=== PATIENT | female | born 1965 | race Caucasian/White ===

== ENCOUNTER → 2017-10-29 | Outpatient (CLI) | payer MEDICAID, OTHER ==
[~2017-10-29] MED LIST: AGM875T PO; ALBU17AE3 IH; AMLO5TAB2 PO; CIPR500T4 PO; CIPR500T78 PO; CLON0.1T14 PO; CYCL10TA9 PO; IBP800T PO; IBUP800T26 PO; LISI1TAB10 PO; LVT.15T PO; MECL-124 PO; MELO-195 PO; METR500T21 PO; MTR500T PO; OLOP2.5D OU; PHEN200T27 PO; PRD1T PO; RANI300T4 PO; RNT150T PO
--- NOTE | 2017-10-29 19:03 | Diagnostic Imaging Report ---
INDICATION: Routine screening. No prior mammograms are available for comparison. This is a baseline study. 2-D and 3-D bilateral screening mammography was performed with CAD. The current study was also evaluated with a Computer Aided Detection (CAD) system. FINDINGS: Scattered benign-appearing calcifications are noted bilaterally. There is an intramammary lymph node in upper outer left breast. No spiculated mass or malignant-appearing microcalcifications are seen. The axillae are unremarkable. IMPRESSION: No mammographic features suspicious for malignancy are identified. ACR BI-RADS Category 2: Benign findings. Result letter will be mailed to the patient. Note: At least 10% of breast cancer is not imaged by mammography. Dictated by: Dictated on workstation # [id number]
== END ==
LOC: RAD 09:13
PROVIDERS: ATTEND Nurse Practitioner Primary Care
DX: Z12.31 Encounter for screening mammogram for malignant neoplasm of breast (principal)
CPT/HCPCS: 77067

== ENCOUNTER 2018-07-16 09:34 | Outpatient (RCR) | payer OTHER ==
[2018-05-15 14:24] LABS: BASOPHILS # (AUTO) 0.1 10^3/uL (0.0-0.1); BASOPHILS % (AUTO) 1 % (0-10); EOSINOPHILS # (AUTO) 0.4 10^3/uL (0.0-0.3); EOSINOPHILS % (AUTO) 3 % (0-10); HEMATOCRIT 44 % (35-52); HEMOGLOBIN 14.7 G/DL (11.5-16.0); LYMPHOCYTES # (AUTO) 3.1 X 10^3 (1.0-4.0); LYMPHOCYTES % (AUTO) 24 % (12-44); MEAN CORPUSCULAR HEMOGLOBIN 29 PG (25-34); MEAN CORPUSCULAR HGB CONC 34 G/DL (32-36); MEAN CORPUSCULAR VOLUME 86 FL (80-99); MEAN PLATELET VOLUME 10.9 FL (7.4-10.4); MONOCYTES % (AUTO) 8 % (0-12); NEUTROPHILS # (AUTO) 8.6 X 10^3 (1.8-7.8); NEUTROPHILS % (AUTO) 65 % (42-75); PLATELET COUNT 277 10^3/uL (130-400); RED CELL DISTRIBUTION WIDTH 14.4 % (10.0-14.5); WHITE BLOOD COUNT 13.1 10^3/uL (4.3-11.0)
[2018-05-15 14:45] LABS: ALANINE AMINOTRANSFERASE 16 U/L (0-55); ALBUMIN 3.7 GM/DL (3.2-4.5); ALKALINE PHOSPHATASE 91 U/L (40-136); BILIRUBIN,TOTAL 0.3 MG/DL (0.1-1.0); BUN/CREATININE RATIO 13; CARBON DIOXIDE 24 MMOL/L (21-32); CHLORIDE 106 MMOL/L (98-107); CREATININE SERUM 0.72 MG/DL (0.60-1.30); GFR ESTIMATED > 60; GLUCOSE 118 MG/DL (70-105); POTASSIUM 3.6 MMOL/L (3.6-5.0); SODIUM 139 MMOL/L (135-145); TOTAL PROTEIN 6.4 GM/DL (6.4-8.2)
[~2018-07-16 09:34] MED LIST changes: +METR-145 PO; -METR500T21 PO
[2018-07-16 10:21] LABS: BASOPHILS # (AUTO) 0.1 10^3/uL (0.0-0.1); BASOPHILS % (AUTO) 1 % (0-10); EOSINOPHILS # (AUTO) 0.5 10^3/uL (0.0-0.3); EOSINOPHILS % (AUTO) 5 % (0-10); HEMATOCRIT 44 % (35-52); HEMOGLOBIN 14.4 G/DL (11.5-16.0); LYMPHOCYTES # (AUTO) 2.3 X 10^3 (1.0-4.0); LYMPHOCYTES % (AUTO) 22 % (12-44); MEAN CORPUSCULAR HEMOGLOBIN 29 PG (25-34); MEAN CORPUSCULAR HGB CONC 33 G/DL (32-36); MEAN CORPUSCULAR VOLUME 87 FL (80-99); MEAN PLATELET VOLUME 11.2 FL (7.4-10.4); MONOCYTES # (AUTO) 0.7 X 10^3 (0.0-1.0); MONOCYTES % (AUTO) 7 % (0-12); NEUTROPHILS # (AUTO) 6.5 X 10^3 (1.8-7.8); NEUTROPHILS % (AUTO) 65 % (42-75); PLATELET COUNT 275 10^3/uL (130-400); RED CELL DISTRIBUTION WIDTH 14.4 % (10.0-14.5); WHITE BLOOD COUNT 10.1 10^3/uL (4.3-11.0)
== END 2018-08-13 | disposition home or self-care (01) ==
LOC: ONC 09:34
PROVIDERS: ATTEND Internal Medicine Hematology & Oncology
DX: D72.829 Elevated white blood cell count, unspecified (principal); Z85.850 Personal history of malignant neoplasm of thyroid; I25.10 Atherosclerotic heart disease of native coronary artery without angina pectoris; I10 Essential (primary) hypertension; M48.061 Spinal stenosis, lumbar region without neurogenic claudication; M51.36 Other intervertebral disc degeneration, lumbar region; M47.816 Spondylosis without myelopathy or radiculopathy, lumbar region; E66.01 Morbid (severe) obesity due to excess calories; Z68.42 Body mass index [BMI] 45.0-49.9, adult; Z79.899 Other long term (current) drug therapy
CPT/HCPCS: 36415; 80053; 81206; 81270; 82784; 83615; 83883; 84155; 84165; 84443; 85025; 86800; 99213; 99214

== ENCOUNTER → 2018-11-26 | Outpatient (CLI) | payer SELFPAY ==
--- NOTE | 2018-11-26 13:26 | Diagnostic Imaging Report ---
PROCEDURE: MRI lumbar spine. TECHNIQUE: Multiplanar, multisequence MRI of the lumbar spine was performed without contrast. INDICATION: Lower back pain. COMPARISON: None. FINDINGS: For the purposes of this exam, last well-formed disc space is denoted the L5-S1 level. There is mild grade 1 retrolisthesis at L5-S1. Otherwise, static alignment is maintained. There is no evidence of jumped facets. The vertebral body heights are preserved. There is no evidence of acute fracture. Marrow signal is normal throughout. There is multilevel intervertebral disc height loss as well, also greatest at the L5-S1 level. Visualized portions of the distal cord are unremarkable. Conus terminates at approximately the L1 level. No abnormal intrathecal filling defects are seen. Pre- and para-vertebral soft tissue structures are unremarkable. Axial images demonstrate the following: T12-L1 and L1-L2: There is no large disc bulge or focal protrusion. There is no significant spinal canal or neural foraminal stenosis. L2-L3: There is no large disc bulge or focal protrusion. There is mild bilateral ligamentum flavum laxity and facet arthropathy. As a result, there is mild narrowing of the spinal canal. Neural foramina are unremarkable. L3-L4: There is mild broad-based posterior disc bulge as well as bilateral ligamentum flavum laxity and facet arthropathy. As a result, there is mild narrowing of the spinal canal and bilateral neural foramina. L4-L5: There is broad-based posterior disc bulge with bilateral ligamentum flavum laxity and facet arthropathy. As a result, there is mild narrowing of the spinal canal and minimal narrowing of the bilateral neural foramina. L5-S1: There is broad-based posterior disc osteophyte complex formation with bilateral facet arthropathy. As a result, there is mild narrowing of the spinal canal and moderate stenosis of the bilateral neural foramina. IMPRESSION: 1. Multilevel degenerative changes of the lumbar spine, greatest at the L5-S1 level as described above. 2. No acute fracture or dislocation. Dictated by: Dictated on workstation # [id number]
== END ==
LOC: RAD 10:02
PROVIDERS: ATTEND Family Medicine
DX: M48.07 Spinal stenosis, lumbosacral region (principal); M25.78 Osteophyte, vertebrae; M46.87 Other specified inflammatory spondylopathies, lumbosacral region; M43.17 Spondylolisthesis, lumbosacral region; M51.17 Intervertebral disc disorders with radiculopathy, lumbosacral region; M47.817 Spondylosis without myelopathy or radiculopathy, lumbosacral region
CPT/HCPCS: 72148

== ENCOUNTER → 2019-01-15 | Outpatient (CLI) | payer SELFPAY ==
[2019-01-15 09:22] LABS: BASOPHILS # (AUTO) 0.1 10^3/uL (0.0-0.1); BASOPHILS % (AUTO) 1 % (0-10); EOSINOPHILS # (AUTO) 0.5 10^3/uL (0.0-0.3); EOSINOPHILS % (AUTO) 5 % (0-10); HEMATOCRIT 44 % (35-52); HEMOGLOBIN 14.8 G/DL (11.5-16.0); LYMPHOCYTES # (AUTO) 2.8 X 10^3 (1.0-4.0); LYMPHOCYTES % (AUTO) 26 % (12-44); MEAN CORPUSCULAR HEMOGLOBIN 29 PG (25-34); MEAN CORPUSCULAR HGB CONC 33 G/DL (32-36); MEAN CORPUSCULAR VOLUME 88 FL (80-99); MEAN PLATELET VOLUME 11.2 FL (7.4-10.4); MONOCYTES # (AUTO) 0.9 X 10^3 (0.0-1.0); MONOCYTES % (AUTO) 8 % (0-12); NEUTROPHILS # (AUTO) 6.3 X 10^3 (1.8-7.8); NEUTROPHILS % (AUTO) 59 % (42-75); PLATELET COUNT 252 10^3/uL (130-400); RED CELL DISTRIBUTION WIDTH 14.4 % (10.0-14.5); WHITE BLOOD COUNT 10.7 10^3/uL (4.3-11.0)
[2019-01-15 09:41] LABS: ALANINE AMINOTRANSFERASE 19 U/L (0-55); ALBUMIN 3.6 GM/DL (3.2-4.5); ALKALINE PHOSPHATASE 92 U/L (40-136); BILIRUBIN,TOTAL 0.3 MG/DL (0.1-1.0); BUN/CREATININE RATIO 14; CALCIUM 8.8 MG/DL (8.5-10.1); CARBON DIOXIDE 21 MMOL/L (21-32); CHLORIDE 106 MMOL/L (98-107); CREATININE SERUM 0.76 MG/DL (0.60-1.30); GFR ESTIMATED > 60; GLUCOSE 119 MG/DL (70-105); POTASSIUM 3.6 MMOL/L (3.6-5.0); SODIUM 139 MMOL/L (135-145); TOTAL PROTEIN 6.5 GM/DL (6.4-8.2)
== END ==
LOC: EDSTATUS 08-14 09:11 → ONC 09:12
PROVIDERS: ATTEND Internal Medicine Hematology & Oncology
DX: D72.829 Elevated white blood cell count, unspecified (principal); Z85.850 Personal history of malignant neoplasm of thyroid; I25.10 Atherosclerotic heart disease of native coronary artery without angina pectoris; I10 Essential (primary) hypertension; M48.061 Spinal stenosis, lumbar region without neurogenic claudication; M51.36 Other intervertebral disc degeneration, lumbar region; M47.816 Spondylosis without myelopathy or radiculopathy, lumbar region; E66.01 Morbid (severe) obesity due to excess calories; Z68.42 Body mass index [BMI] 45.0-49.9, adult; Z79.899 Other long term (current) drug therapy
CPT/HCPCS: 36415; 80053; 84432; 84443; 85025; 86800; 99213

== ENCOUNTER → 2020-12-29 | Outpatient (CLI) | payer SELFPAY ==
[~2020-12-29] MED LIST changes: -CIPR500T4 PO; +CIPR500T5 PO
== END ==
LOC: CARD 09:59
PROVIDERS: ATTEND Pediatrics
DX: I51.7 Cardiomegaly (principal)
CPT/HCPCS: 93306

== ENCOUNTER 2021-02-14 21:07 | Emergency (ER) | payer SELFPAY ==
[~2021-02-14] VITALS: Ht 160 cm; Wt 122.4 kg
[2021-02-14] MEDS ORDERED: NS IV 1000 ML 1,000 ML IV SCH (22:15)
--- NOTE | 2021-02-14 22:22 | ED GU-Female ---
General Stated Complaint: FEVER, PAIN WHEN URINATING Source: patient Exam Limitations: no limitations History of Present Illness Date Seen by Provider: Feb 14, 2021 Time Seen by Provider: 22:00 Initial Comments Patient to the ER by private conveyance with her significant other and chief complaint that she is having some right lower quadrant abdominal pain about 4 out of 10 for the past 1-1/2 days and decreased urinary frequency and a little dysuria. She has had UTIs like this in the past but never with a fever. She had 101 degree fever today when her partner got home from work and so they decided to come to the ER. She was not able to see a doctor earlier. She took Tylenol last dose was 1011 hours 2 hours ago. She is not having any nausea or vomiting. She has a pain radiates around to her right back and flank. She denies a history of kidney stones. She does have a history of colitis which has landed her in the hospital before. She had a colonoscopy about 8 years ago which was unremarkable. She has some diverticulosis in the past. She is not having any loose stools, bloody stools, hematuria. She is had poor appetite today. She says she has been drinking more than usual. She has had a hysterectomy cholecystectomy. Appendix is intact. 2 C-sections. Allergies and Home Medications Allergies Coded Allergies: acetaminophen (Unverified Allergy, Mild, 01/12/14) anger oxycodone (Unverified Allergy, Mild, 01/12/14) anger Patient Home Medication List Home Medication List Reviewed: Yes Albuterol (Proventil) 17 Gm Inh, 1-2 PUFF IH Q4H PRN for SHORTNESS OF BREATH, (Reported) Entered as Reported by: DOUGLAS TIRADO on 01/12/142203 Amlodipine Besylate (Amlodipine Besylate) 5 Mg Tablet, 5 MG PO DAILY, (Reported) Entered as Reported by: DOUGLAS TIRADO on 01/12/142203 Ciprofloxacin HCl (Cipro) 500 Mg Tablet, 500 MG PO BID Prescribed by: LUZ ARREDONDO on 10/17/14 1231 Ciprofloxacin HCl (Ciprofloxacin HCl) 500 Mg Tablet, 500 MG PO BID Prescribed by: FITO ALICEA on 02/14/15 0229 Clonidine HCl (Catapres) 0.1 Mg Tablet, 0.1 MG PO BID, (Reported) Entered as Reported by: DOUGLAS TIRADO on 01/12/142203 Cyclobenzaprine Hcl (Cyclobenzaprine Hcl) 10 Mg Tablet, 10 MG PO TID PRN for PAIN, (Reported) Entered as Reported by: SIMON SHERIFF on 01/27/141138 Hctz/Lisinopril (Lisinopril-Hctz 20-25MG Tab) 1 Tab Tablet, 1 TAB PO DAILY, (Reported) Entered as Reported by: DOUGLAS TIRADO on 01/12/142203 Ibuprofen (Motrin Tablet) 800 Mg Tab, 800 MG PO TID, (Reported) Entered as Reported by: MARLEN QUEZADA on 10/17/14 0733 Levothyroxine Sodium (Synthroid) 150 Mcg Tablet, 150 MCG PO DAILY, (Reported) Entered as Reported by: DOUGLAS TIRADO on 01/12/142203 Meclizine Hcl (Antivert) 25 Mg Tab, 1 TAB PO QID, (Reported) Entered as Reported by: MARLEN QUEZADA on 10/17/14 0739 Metronidazole (Metronidazole) 500 Mg Tab, 500 MG PO Q8HR Prescribed by: LUZ ARREDONDO on 10/17/14 1231 Metronidazole (Metronidazole) 500 Mg Tablet, 500 MG PO BID Prescribed by: FITO ALICEA on 02/14/15 0229 Olopatadine Hcl (Pataday) 2.5 Ml Drops, 1 DROP OU DAILY PRN for ALLERGY, (Reported) Entered as Reported by: SIMON SHERIFF on 01/27/14 113 Phenazopyridine Hcl (Pyridium) 200 Mg Tablet, 1 EACH PO TID PRN for PAIN Prescribed by: MATT PACE on 03/05/14 0150 Ranitidine Hcl (Ranitidine Hcl) 300 Mg Tablet, 300 MG PO BID, (Reported) Entered as Reported by: SIMON SHERIFF on 01/27/141138 Review of Systems Review of Systems Constitutional: chills, fever, malaise EENTM: No ear discharge, No ear pain Respiratory: No cough Cardiovascular: No chest pain, No edema Gastrointestinal: RLQ, abdominal pain; No constipation, No diarrhea; loss of appetite; No nausea Past Sdqyjjx-Zaribo-Lrnjhd Hx Patient Social History Tobacco Use?: No Use of E-Cig and/or Vaping dev: No Alcohol Use?: No Immunizations Up To Date Tetanus Booster (TDap): Unknown PED Vaccines UTD: No Seasonal Allergies Seasonal Allergies: No Past Medical History Section, Gallbladder, Hysterectomy, Thyroidectomy Chronic Bronchitis Hypertension 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 Disorders: No 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 6.0oz. [id number]; BMI Method:Stated General Appearance: WD/WN, mild distress HEENT: PERRL/EOMI, pharynx normal Neck: full range of motion, normal inspection Cardiovascular: normal peripheral pulses, regular rate, rhythm Respiratory: no respiratory distress, no accessory muscle use Gastrointestinal: normal bowel sounds, soft, tenderness (Right lower quadrant) Back: normal inspection, no CVA tenderness Extremities: normal range of motion, normal capillary refill Neurologic/Psychiatric: alert, normal mood/affect, oriented x 3 Skin: normal color, warm/dry Progress/Results/Core Measures Suspected Sepsis SIRS Temperature: Pulse: Respiratory Rate: Laboratory Tests 02/14/21 22:08: White Blood Count 15.7H Blood Pressure / Mean: Laboratory Tests 02/14/21 22:08: Creatinine 0.98, Platelet Count 263, Total Bilirubin 0.4 Results/Orders Lab Results Laboratory Tests Test 02/14/21 22:08 02/14/21 22:21 Range/Units White Blood Count 15.7 H 4.3-11.0 10^3/uL Red Blood Count 4.86 3.80-5.11 10^6/uL Hemoglobin 14.1 11.5-16.0 g/dL Hematocrit 44 35-52 % Mean Corpuscular Volume 90 80-99 fL Mean Corpuscular Hemoglobin 29 25-34 pg Mean Corpuscular Hemoglobin Concent 32 32-36 g/dL Red Cell Distribution Width 13.2 10.0-14.5 % Platelet Count 263 130-400 10^3/uL Mean Platelet Volume 10.7 9.0-12.2 fL Immature Granulocyte % (Auto) 1 % Neutrophils (%) (Auto) 76 H 42-75 % Lymphocytes (%) (Auto) 12 12-44 % Monocytes (%) (Auto) 10 0-12 % Eosinophils (%) (Auto) 1 0-10 % Basophils (%) (Auto) 1 0-10 % Neutrophils # (Auto) 11.9 H 1.8-7.8 10^3/uL Lymphocytes # (Auto) 1.8 1.0-4.0 10^3/uL Monocytes # (Auto) 1.5 H 0.0-1.0 10^3/uL Eosinophils # (Auto) 0.2 0.0-0.3 10^3/uL Basophils # (Auto) 0.1 0.0-0.1 10^3/uL Immature Granulocyte # (Auto) 0.1 0.0-0.1 10^3/uL Neutrophils % (Manual) 83 % Lymphocytes % (Manual) 8 % Monocytes % (Manual) 6 % Eosinophils % (Manual) 1 % Basophils % (Manual) 0 % Band Neutrophils 1 % Reactive Lymphocytes 1 % Blood Morphology Comment NORMAL Sodium Level 139 135-145 MMOL/L Potassium Level 2.9 L 3.6-5.0 MMOL/L Chloride Level 98 98-107 MMOL/L Carbon Dioxide Level 30 21-32 MMOL/L Anion Gap 11 5-14 MMOL/L Blood Urea Nitrogen 16 7-18 MG/DL Creatinine 0.98 0.60-1.30 MG/DL Estimat Glomerular Filtration Rate 59 BUN/Creatinine Ratio 16 Glucose Level 115 H 70-105 MG/DL Calcium Level 8.9 8.5-10.1 MG/DL Corrected Calcium 9.1 8.5-10.1 MG/DL Total Bilirubin 0.4 0.1-1.0 MG/DL Aspartate Amino Transf (AST/SGOT) 14 5-34 U/L Alanine Aminotransferase (ALT/SGPT) 15 0-55 U/L Alkaline Phosphatase 74 40-136 U/L C-Reactive Protein High Sensitivity 12.56 H 0.00-0.50 MG/DL Total Protein 6.8 6.4-8.2 GM/DL Albumin 3.7 3.2-4.5 GM/DL Urine Color YELLOW Urine Clarity SL CLOUDY Urine pH 6.0 5-9 Urine Specific [place] 1.015 L 1.016-1.022 Urine Protein TRACE H NEGATIVE Urine Glucose (UA) NEGATIVE NEGATIVE Urine Ketones TRACE H NEGATIVE Urine Nitrite POSITIVE H NEGATIVE Urine Bilirubin 1+ H NEGATIVE Urine Urobilinogen 1.0 < = 1.0 MG/DL Urine Leukocyte Esterase 2+ H NEGATIVE Urine RBC (Auto) 1+ H NEGATIVE Urine RBC RARE /HPF Urine WBC 25-50 H /HPF Urine Squamous Epithelial Cells 5-10 /HPF Urine Crystals NONE /LPF Urine Bacteria LARGE H /HPF Urine Casts NONE /LPF Urine Mucus SMALL H /LPF Urine Culture Indicated YES My Orders Orders - KASI ANDERSON Ua Culture If Indicated (02/14/21 21:57) Cbc With Automated Diff (02/14/21 22:15) Comprehensive Metabolic Panel (02/14/21 22:15) Hs C Reactive Protein (02/14/21 22:15) Ed Iv/Invasive Line Start (02/14/21 22:15) Ns Iv 1000 Ml (Sodium Chloride 0.9%) (02/14/21 22:15) Manual Differential (02/14/21 22:08) Urine Culture (02/14/21 22:21) Ceftriaxone (Rocephin) (02/14/21 22:45) Vital Signs/I&O Capillary Refill : Progress Note #1: Time: 22:22 Progress Note Differential includes a UTI however we will consider colitis appendicitis is a possibility. We will get some labs bili and CRP. Vitals are stable, aseptic other than the fever. She declined anything for pain. Progress Note #2: Time: 22:52 Progress Note The patient is still comfortable. We discussed the diagnosis pyelonephritis is the most likely source of her symptoms. We did offer her an opportunity to observe in the hospital but she did not feel like she can tolerate doing outpat ient Rocephin. She states she will very much prefer not to stay in the hospital. She has aseptic vital signs. We will let her finish her liter of fluids and she can follow-up in her primary care office. Departure Impression Primary Impression: Pyelonephritis Disposition: 01 HOME, SELF-CARE Condition: Stable Departure-Patient Inst. Decision time for Depature: 22:53 Referrals: LUZ ARREDONDO MD (PCP/Family) Primary Care Physician Patient Instructions: Kidney Infection (DC) Add. Discharge Instructions: Drink lots of fluids. Tylenol 1000 mg every 8 hours as necessary for pain or fever. Heating pads over your back can be helpful for pain. Decrease your use NSAIDs such as ibuprofen, Motrin, naproxen/Aleve etc. Until after your infection has cleared. Return to the hospital for outpatient Rocephin once a day on Saturday and , 02/15/2021 and 02/16/2021. 02/17/2021 start cefdinir 300 mg twice a day x1 week. Probiotics 1 capsule twice a day to prevent diarrhea associated with antibiotic use. Ondansetron 1 tablet under the tongue every 6 hours as necessary for nausea and/or vomiting. Return to the ER if you are having intractable nausea, worsening pain or other worrisome symptoms. Scripts Ondansetron (Ondansetron Odt) 4 Mg Tab.rapdis 4 MG PO Q6H PRN for NAUSEA/VOMITING, #8 TAB 0 Refills Prov: KASI ANDERSON 02/14/21 Cefdinir (Cefdinir) 300 Mg Capsule 300 MG PO BID for 7 Days, #14 CAP 0 Refills Prov: KASI ANDERSON 02/14/21 Work/School Note: Work Release Form Date Seen in the Emergency Department: Feb 14, 2021 Return to Work: Feb 17, 2021 Restrictions: No Restrictions Copy Copies To 1: LUZ ARREDONDO MD, TITUS J Feb 14, 2021 22:22
[2021-02-14 22:23] LABS: BASOPHILS # (AUTO) 0.1 10^3/uL (0.0-0.1); BASOPHILS % (AUTO) 1 % (0-10); EOSINOPHILS # (AUTO) 0.2 10^3/uL (0.0-0.3); EOSINOPHILS % (AUTO) 1 % (0-10); HEMATOCRIT 44 % (35-52); HEMOGLOBIN 14.1 g/dL (11.5-16.0); LYMPHOCYTES # (AUTO) 1.8 10^3/uL (1.0-4.0); LYMPHOCYTES % (AUTO) 12 % (12-44); MEAN CORPUSCULAR HEMOGLOBIN 29 pg (25-34); MEAN CORPUSCULAR HGB CONC 32 g/dL (32-36); MEAN CORPUSCULAR VOLUME 90 fL (80-99); MEAN PLATELET VOLUME 10.7 fL (9.0-12.2); MONOCYTES # (AUTO) 1.5 10^3/uL (0.0-1.0); MONOCYTES % (AUTO) 10 % (0-12); NEUTROPHILS # (AUTO) 11.9 10^3/uL (1.8-7.8); NEUTROPHILS % (AUTO) 76 % (42-75); PLATELET COUNT 263 10^3/uL (130-400); WHITE BLOOD COUNT 15.7 10^3/uL (4.3-11.0)
[2021-02-14 22:24] LABS: ALBUMIN 3.7 GM/DL (3.2-4.5); POTASSIUM 2.9 MMOL/L (3.6-5.0)
[2021-02-14 22:25] LABS: CALCIUM 8.9 MG/DL (8.5-10.1)
[2021-02-14 22:26] LABS: COLOR,URINE YELLOW; GLUCOSE, URINE (UA) NEGATIVE (NEGATIVE); KETONES,URINE TRACE (NEGATIVE); LEUKOCYTE ESTERASE ,URINE 2+ (NEGATIVE); NITRITE,URINE POSITIVE (NEGATIVE); PROTEIN,URINE TRACE (NEGATIVE)
[2021-02-14 22:27] LABS: TOTAL PROTEIN 6.8 GM/DL (6.4-8.2)
[2021-02-14 22:28] LABS: BILIRUBIN,TOTAL 0.4 MG/DL (0.1-1.0)
[2021-02-14 22:30] LABS: CREATININE SERUM 0.98 MG/DL (0.60-1.30)
[2021-02-14 22:32] LABS: CLARITY,URINE SL CLOUDY
[2021-02-14 22:33] LABS: BILIRUBIN,URINE 1+ (NEGATIVE)
[2021-02-14 22:35] LABS: BACTERIA,URINE LARGE /HPF; RBC,URINE RARE /HPF; WBC,URINE 25-50 /HPF
[2021-02-14 22:39] LABS: BAND NEUTROPHILS 1 %; EOSINOPHILS % (MANUAL) 1 %; LYMPHOCYTES % (MANUAL) 8 %; MONOCYTES % (MANUAL) 6 %; NEUTROPHILS % (MANUAL) 83 %
[2021-02-14 22:40] LABS: BASOPHILS % (MANUAL) 0 %; RBC MORPH NORMAL; REACTIVE LYMPHOCYTES 1 %
[2021-02-14] MEDS ORDERED: cefTRIAXone 1,000 MG in WATER (STERILE) FOR INJECTION 10 ML IV ONE (22:45)
[2021-02-14] MEDS ORDERED: CEFD300C3 PO (22:55)
[2021-02-14] MEDS ORDERED: ONDA4TAB11 PO (22:56)
[2021-02-14 23:26] VITALS: BP 116/71
[2021-02-15] MEDS ORDERED: HYDR-3817 PO (13:41)
== END 2021-02-14 23:26 | disposition home or self-care (01) ==
LOC: EDUNIT# 21:07 → ER 21:10
DX: N12 Tubulo-interstitial nephritis, not specified as acute or chronic (principal); I10 Essential (primary) hypertension; K21.9 Gastro-esophageal reflux disease without esophagitis; E03.9 Hypothyroidism, unspecified; Z90.710 Acquired absence of both cervix and uterus; Z90.49 Acquired absence of other specified parts of digestive tract; Z79.890 Hormone replacement therapy; Z79.899 Other long term (current) drug therapy
CPT/HCPCS: 36415; 80053; 81000; 85007; 85027; 86141; 87077; 87088; 87186; 96374

== ENCOUNTER 2021-02-15 11:34 | Emergency (ER) | payer SELFPAY ==
[~2021-02-15] VITALS: Ht 160 cm; Wt 122.0 kg
[~2021-02-15 11:34] MED LIST changes: +CEFD300C3 PO; +ONDA4TAB11 PO
--- NOTE | 2021-02-15 12:06 | ED GU-Female ---
General Chief Complaint: - 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 Stated Complaint: KIDNEY/BACK PAIN Source: patient Exam Limitations: no limitations History of Present Illness Date Seen by Provider: Feb 15, 2021 Time Seen by Provider: 11:53 Initial Comments Patient is a 56-year-old female who presents to the emergency department today with a chief complaint of left flank pain. Patient states she was seen in the emergency department last night and diagnosed with a urinary tract infection. She was given Rocephin and her IV fluids and scheduled to come back tomorrow and Saturday for IM Rocephin. She is scheduled to start cefdinir on the . Patient states that she does not have pain at this level when she was seen last night. She did not get sent home with any pain medicine. She is a little bit nauseous but has not picked up her Zofran secondary to not starting her oral antibiotics until Saturday. No vomiting. She is not taking any Azo. Patient does not have any history of kidney stones. She has not noticed any blood in her urine. All other review of systems reviewed and negative except as stated. Timing/Duration: this morning Severity/Quality: severe, stabbing Location: left flank Radiation: left flank Activities at Onset: none Modifying Factors: Improves With Other (Took Tylenol at 830, 2 500 mg tablets) Associated Symptoms: abdominal pain, nausea/vomiting Allergies and Home Medications Allergies Coded Allergies: acetaminophen (Unverified Allergy, Mild, 01/12/14) anger oxycodone (Unverified Allergy, Mild, 01/12/14) anger Patient Home Medication List Home Medication List Reviewed: Yes Albuterol (Proventil) 17 Gm Inh, 1-2 PUFF IH Q4H PRN for SHORTNESS OF BREATH, (Reported) Entered as Reported by: DOUGLAS TIRADO on 01/12/142203 Amlodipine Besylate (Amlodipine Besylate) 5 Mg Tablet, 5 MG PO DAILY, (Reported) Entered as Reported by: DOUGLAS TIRADO on 01/12/142203 Cefdinir (Cefdinir) 300 Mg Capsule, 300 MG PO BID Prescribed by: KASI ANDERSON on 02/14/21 2255 Ciprofloxacin HCl (Cipro) 500 Mg Tablet, 500 MG PO BID Prescribed by: LUZ ARREDONDO on 10/17/14 1231 Ciprofloxacin HCl (Ciprofloxacin HCl) 500 Mg Tablet, 500 MG PO BID Prescribed by: FITO ALICEA on 02/14/15228 Clonidine HCl (Catapres) 0.1 Mg Tablet, 0.1 MG PO BID, (Reported) Entered as Reported by: DOUGLAS TIRADO on 01/12/142203 Cyclobenzaprine Hcl (Cyclobenzaprine Hcl) 10 Mg Tablet, 10 MG PO TID PRN for PAIN, (Reported) Entered as Reported by: SIMON SHERIFF on 01/27/141138 Hctz/Lisinopril (Lisinopril-Hctz 20-25MG Tab) 1 Tab Tablet, 1 TAB PO DAILY, (Reported) Entered as Reported by: DOUGLAS TIRADO on 01/12/142203 Hydrocodone/Acetaminophen (Hydrocodone-Acetamin 7.5-325) 1 Each Tablet, 1 EACH PO Q6H PRN for PAIN-MODERATE (5-7) Prescribed by: STUART CUELLO on 02/15/21 1342 Ibuprofen (Motrin Tablet) 800 Mg Tab, 800 MG PO TID, (Reported) Entered as Reported by: MARLEN QUEZADA on 10/17/14 0733 Levothyroxine Sodium (Synthroid) 150 Mcg Tablet, 150 MCG PO DAILY, (Reported) Entered as Reported by: DOUGLAS TIRADO on 01/12/142203 Meclizine Hcl (Antivert) 25 Mg Tab, 1 TAB PO QID, (Reported) Entered as Reported by: MARLEN QUEZADA on 10/17/14 0739 Metronidazole (Metronidazole) 500 Mg Tab, 500 MG PO Q8HR Prescribed by: LUZ ARREDONDO on 10/17/14 1231 Metronidazole (Metronidazole) 500 Mg Tablet, 500 MG PO BID Prescribed by: FITO ALICEA on 02/14/15228 Olopatadine Hcl (Pataday) 2.5 Ml Drops, 1 DROP OU DAILY PRN for ALLERGY, (Reported) Entered as Reported by: SIMON SHERIFF on 01/27/141138 Ondansetron (Ondansetron Odt) 4 Mg Tab.rapdis, 4 MG PO Q6H PRN for NAUSEA/VOMITING Prescribed by: KASI ANDERSON on 02/14/212255 Phenazopyridine Hcl (Pyridium) 200 Mg Tablet, 1 EACH PO TID PRN for PAIN Prescribed by: MATT PACE on 03/05/14 0150 Ranitidine Hcl (Ranitidine Hcl) 300 Mg Tablet, 300 MG PO BID, (Reported) Entered as Reported by: SIOMN SHERIFF on 01/27/14 1139 Review of Systems Review of Systems Constitutional: see HPI Respiratory: no symptoms reported Cardiovascular: no symptoms reported Gastrointestinal: abdominal pain, nausea Genitourinary: burning, frequency : No Musculoskeletal: no symptoms reported Skin: no symptoms reported All Other Systemes Reviewed Negative Unless Noted: Yes Past Eqjuroo-Yupkza-Dkcarr Hx Immunizations Up To Date Tetanus Booster (TDap): Unknown PED Vaccines UTD: No First/Initial COVID19 Vaccinat: jul 2020 Second COVID19 Vaccination Jermain: august 2020 Seasonal Allergies Seasonal Allergies: No Past Medical History Section, Gallbladder, Hysterectomy, Thyroidectomy Chronic Bronchitis Hypertension 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 Sexually Transmitted Disease: No HIV/AIDS: No Colitis, Gastroesophageal Reflux Degenerate Disk Disease Hypothyroidsim Loss of Vision: Denies Hearing Impairment: Denies Thyroid Family Medical History Alcoholism 19 FATHER G8 BROTHER Alzheimer's disease 19 MOTHER Cancer of mouth G8 BROTHER Cataracts 19 MOTHER Drug abuse G8 BROTHER FHx: lung cancer 19 FATHER Hypertension 19 FATHER 19 MOTHER G8 BROTHER G8 SISTER Respiratory disorder 19 FATHER Thyroid disease G8 SISTER No Pertinent Family Hx Physical Exam Vital Signs Vital Signs - First Documented 02/15/21 11:40 Temp 36.8 Pulse 69 Resp 17 B/P (MAP) 144/86 (105) O2 Delivery Room Air Capillary Refill : Height, Weight, BMI Height: 5'3" Weight: 268lbs. 6.0oz. 121.712261lc; 47.00 BMI Method:Stated General Appearance: WD/WN, mild distress Neck: full range of motion Cardiovascular: regular rate, rhythm Respiratory: lungs clear, normal breath sounds, no respiratory distress, no accessory muscle use Gastrointestinal: tenderness (Left flank) Back: CVA tenderness (L) Extremities: normal range of motion, non-tender, normal inspection Neurologic/Psychiatric: alert, normal mood/affect, oriented x 3 Skin: normal color, warm/dry Progress/Results/Core Measures Suspected Sepsis SIRS Temperature: Pulse: Respiratory Rate: Blood Pressure / Mean: Results/Orders My Orders Orders - STUART CUELLO MD Hydrocodone/Apap 7.5/325 Tab (Lortab 7. (02/15/21 12:15) Ct Abdomen/Pelvis W (02/15/21 12:02) Iohexol Injection (Omnipaque 350 Mg/Ml 1 (02/15/21 13:00) Received Contrast (Hold Metformin- Contr (02/15/21 13:00) Ns (Ivpb) (Sodium Chloride 0.9% Ivpb Bag (02/15/21 13:00) Ketorolac Injection (Toradol Injection) (02/15/21 13:15) Fentanyl Inj (Sublimaze Injection) (02/15/21 13:15) Ceftriaxone (Rocephin) (02/15/21 13:30) Medications Given in ED Current Medications Medications Dose Ordered Sig/Nasim Route Start Time Stop Time Status Last Admin Dose Admin Acetaminophen/ Hydrocodone Bitart 1 ea ONCE ONCE PO 02/15/21 12:15 02/15/21 12:16 DC 02/15/21 12:17 1 EA Ceftriaxone Sodium 1000 mg/ Sterile Water 10 ml @ 200 mls/hr ONCE ONCE IV 02/15/21 13:30 02/15/21 13:32 DC 02/15/21 13:39 200 MLS/HR Fentanyl Citrate 50 mcg ONCE ONCE IVP 02/15/21 13:15 02/15/21 13:16 DC 02/15/21 13:19 50 MCG Iohexol 100 ml ONCE ONCE IV 02/15/21 13:00 02/15/21 13:01 DC 02/15/21 13:00 100 ML Ketorolac Tromethamine 15 mg ONCE ONCE IVP 02/15/21 13:15 02/15/21 13:16 DC 02/15/21 13:19 15 MG Sodium Chloride 100 ml ONCE ONCE IV 02/15/21 13:00 02/15/21 13:01 DC 02/15/21 13:00 80 ML Vital Signs/I&O 02/15/21 11:40 Temp 36.8 Pulse 69 Resp 17 B/P (MAP) 144/86 (105) O2 Delivery Room Air Capillary Refill : Progress Note : Time: 13:31 Progress Note Patient back from CT. got her fentanyl and toradol about 14min ago. still having some pain. 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 will send patient home with pain medications. follow up with PCP. 1402 patient feeling much better on discharge Diagnostic Imaging Diagonstic Imaging: CT Plain Films/CT/US/NM/MRI: abdomen Comments [facility] [place], [place] NAME: GABI NG [facility] REC#: [id number] PT STATUS: REG ER : 1965 PHYSICIAN: STUART CUELLO MD ADMIT DATE: 02/15/21/ER Draft Date of Exam:02/15/21 CT ABDOMEN/PELVIS W PROCEDURE: CT abdomen and pelvis with contrast. TECHNIQUE: Multiple contiguous axial images were obtained through the abdomen and pelvis after administration of intravenous contrast. Auto Exposure Controls were utilized during the CT exam to meet ALARA standards for radiation dose reduction. All CT scans use one or more of the following dose optimizing techniques: automated exposure control, MA and/or KvP adjustment based on patient size and exam type or iterative reconstruction. INDICATION: Low back pain. Comparison is made with prior CT from 02/14/2015. The lung bases are clear. The liver shows mild generalized low density consistent with hepatic steatosis. Gallbladder is surgically absent. No biliary ductal dilatation is seen. The pancreas and spleen are unremarkable. There is some mild nodular enlargement of the left adrenal gland, stable. Right adrenal gland is unremarkable. Kidneys are unremarkable. Aorta is heavily calcified but nonaneurysmal. There is a fat-containing umbilical hernia. No herniated bowel loops are seen. The bowel loops are normal caliber. There is diverticulosis of the sigmoid and descending colon but no evidence of acute diverticulitis. Bladder is unremarkable. There is no free fluid or fluid collection. Bony structures are nonacute. IMPRESSION: 1. Hepatic steatosis. 2. Uncomplicated diverticulosis. 3. Fat-containing umbilical hernia. Dictated on workstation # [id number] Dict: 02/15/21 1303 Trans: 02/15/21 1312 [facility] [id number] Interpreted by: AUDRA BELTRE MD Electronically signed by: Departure Impression Primary Impression: Left flank discomfort Additional Impression: Pyelonephritis Disposition: 01 HOME, SELF-CARE Condition: Stable Departure-Patient Inst. Decision time for Depature: 13:39 Referrals: LUZ ARREDONDO MD (PCP/Family) Primary Care Physician Patient Instructions: Kidney Infection Add. Discharge Instructions: drink lots of fluids to stay well hydrated. Come back for your next antibiotic infusion tomorrow. Hydrocodone 7.5mg every 4-6 hours as needed for pain. Use over the counter AZO (pyridium) for bladder spasms/pain three times a day. Call your primary care doctor for a follow up appointment early next week. Return to the ER for any high fevers, worsening pain, vomiting or other emergent, concerning symptoms. Scripts Hydrocodone/Acetaminophen (Hydrocodone-Acetamin 7.5-325) 1 Each Tablet 1 EACH PO Q6H PRN for PAIN-MODERATE (5-7), #12 TAB Prov: STUART CUELLO MD 02/15/21 STUART CUELLO MD Feb 15, 2021 12:06
[2021-02-15] MEDS ORDERED: HYDROcodone/APAP 7.5 MG/325 MG (LORTAB, LORCET PLUS) TABLET PO ONE (12:15)
[2021-02-15] MEDS ORDERED: IOHEXOL 350 MG/ML 100 ML (OMNIPAQUE 350) VIAL IV ONE (13:00)
[2021-02-15] MEDS ORDERED: NS 100 ML (IVPB) BAG IV ONE (13:00)
[2021-02-15] MEDS ORDERED: HOLD METFORMIN - RECEIVED CONTRAST 20 ML VIAL IV SCH (13:00)
--- NOTE | 2021-02-15 13:13 | Diagnostic Imaging Report ---
PROCEDURE: CT abdomen and pelvis with contrast. TECHNIQUE: Multiple contiguous axial images were obtained through the abdomen and pelvis after administration of intravenous contrast. Auto Exposure Controls were utilized during the CT exam to meet ALARA standards for radiation dose reduction. All CT scans use one or more of the following dose optimizing techniques: automated exposure control, MA and/or KvP adjustment based on patient size and exam type or iterative reconstruction. INDICATION: Low back pain. Comparison is made with prior CT from 02/14/2015. The lung bases are clear. The liver shows mild generalized low density consistent with hepatic steatosis. Gallbladder is surgically absent. No biliary ductal dilatation is seen. The pancreas and spleen are unremarkable. There is some mild nodular enlargement of the left adrenal gland, stable. Right adrenal gland is unremarkable. Kidneys are unremarkable. Aorta is heavily calcified but nonaneurysmal. There is a fat-containing umbilical hernia. No herniated bowel loops are seen. The bowel loops are normal caliber. There is diverticulosis of the sigmoid and descending colon but no evidence of acute diverticulitis. Bladder is unremarkable. There is no free fluid or fluid collection. Bony structures are nonacute. IMPRESSION: 1. Hepatic steatosis. 2. Uncomplicated diverticulosis. 3. Fat-containing umbilical hernia. Dictated by: Dictated on workstation # [id number]
[2021-02-15] MEDS ORDERED: fentaNYL INJ 100 MCG/2 ML AMP IVP ONE (13:15)
[2021-02-15] MEDS ORDERED: KETOROLAC 30 MG/ML VIAL IVP ONE (13:15)
[2021-02-15] MEDS ORDERED: cefTRIAXone 1,000 MG in WATER (STERILE) FOR INJECTION 10 ML IV ONE (13:30)
[2021-02-15] MEDS ORDERED: HYDR-3817 PO (13:41)
[2021-02-15 14:07] VITALS: BP 140/73
== END 2021-02-15 14:07 | disposition home or self-care (01) ==
LOC: EDUNIT# 11:34 → ER 11:35
DX: N10 Acute pyelonephritis (principal); I10 Essential (primary) hypertension; E89.0 Postprocedural hypothyroidism; K21.9 Gastro-esophageal reflux disease without esophagitis; Z90.710 Acquired absence of both cervix and uterus; Z88.5 Allergy status to narcotic agent; Z79.890 Hormone replacement therapy; Z79.899 Other long term (current) drug therapy
CPT/HCPCS: 74177

== ENCOUNTER 2021-04-25 22:18 | Emergency (ER) | payer SELFPAY ==
[~2021-04-25 22:18] MED LIST changes: +HYDR-3817 PO
[2021-04-25] MEDS ORDERED: LIDOCAINE 1% INJ 20 ML 20 ML VIAL INJ ONE (23:45)
[2021-04-25] MEDS ORDERED: BENZONATATE 100 MG (TESSALON) CAPSULE PO SCH (23:45)
[2021-04-25] MEDS ORDERED: cefTRIAXone 1,000 MG VIAL IM ONE (23:45)
[2021-04-25] MEDS ORDERED: METH4TAB PO (23:48)
[2021-04-25] MEDS ORDERED: D-ME473S11 PO (23:48)
[2021-04-25] MEDS ORDERED: DOXY100T2 PO (23:48)
[2021-04-25] MEDS ORDERED: BENZ100C18 PO (23:48)
--- NOTE | 2021-04-25 23:48 | ED Cough/URI ---
General Chief Complaint: COVID19 Suspect/Confirmed Stated Complaint: COUGH / BODY ACHES Nursing Triage Note: TO ED VIA POV AND AMBULATORY TO ROOM 10 NEGATIVE PRESSURE ROOM WITH C/O COUGH SINCE YESTERDAY. DENIES FEVER. HAS TAKEN TESSALON PERLES AND MUCINEX WITHOUT RELIEF. TAKES TYLENOL AND MOTRIN MX TIMES A DAY FOR CHRONIC ISSUES. Source: patient History of Present Illness Date Seen by Provider: Apr 25, 2021 Time Seen by Provider: 22:50 Initial Comments PT ARRIVES VIA POV FROM HOME STATES SHE BEGAN HAVING A PRODUCTIVE COUGH WITH YELLOW SPUTUM YESTERDAY ALSO C/O BODY ACHES NO SHORTNESS OF BREATH NO CHEST PAIN NO GI SYMPTOMS NO HEADACHE NO LOSS OF TASTE OR SMELL NO RELIEF WITH MUCINEX AND TESSALON X 2 DOSES TAKES TYLENOL AND MOTRIN TWICE A DAY EVERY DAY FOR CHRONIC PAIN ISSUES PT STATES 5 ADULTS AND 3 CHILDREN LIVE IN THE HOME AND NO ONE ELSE IS ILL. PT HAS HAD COVID-19 VACCINE--SECOND DOSE 08/2020 PCP: [facility], DR. ARREDONDO Allergies and Home Medications Allergies Coded Allergies: acetaminophen (Unverified Allergy, Mild, 01/12/14) anger oxycodone (Unverified Allergy, Mild, 01/12/14) anger Patient Home Medication List Home Medication List Reviewed: Yes Albuterol (Proventil) 17 Gm Inh, 1-2 PUFF IH Q4H PRN for SHORTNESS OF BREATH, (Reported) Entered as Reported by: DOUGLAS TIRADO on 01/12/142203 Amlodipine Besylate (Amlodipine Besylate) 5 Mg Tablet, 5 MG PO DAILY, (Reported) Entered as Reported by: DOUGLAS TIRADO on 01/12/142203 Benzonatate (Tessalon Perles) 100 Mg Capsule, 200 MG PO TID Prescribed by: STEPHAN ROBERT on 04/25/21 2348 Cefdinir (Cefdinir) 300 Mg Capsule, 300 MG PO BID Prescribed by: KASI ANDERSON on 02/14/21 2255 Ciprofloxacin HCl (Cipro) 500 Mg Tablet, 500 MG PO BID Prescribed by: LUZ ARREDONDO on 10/17/14 1231 Ciprofloxacin HCl (Ciprofloxacin HCl) 500 Mg Tablet, 500 MG PO BID Prescribed by: FITO ALICEA on 02/14/15 0229 Clonidine HCl (Catapres) 0.1 Mg Tablet, 0.1 MG PO BID, (Reported) Entered as Reported by: DOUGLAS TIRADO on 01/12/142203 Cyclobenzaprine Hcl (Cyclobenzaprine Hcl) 10 Mg Tablet, 10 MG PO TID PRN for PAIN, (Reported) Entered as Reported by: SIMON SHERIFF on 01/27/14 113 Doxycycline Hyclate (Doxycycline Hyclate) 100 Mg Tablet, 100 MG PO BID Prescribed by: STEPHAN ROBERT on 04/25/21 234 Hctz/Lisinopril (Lisinopril-Hctz 20-25MG Tab) 1 Tab Tablet, 1 TAB PO DAILY, (Reported) Entered as Reported by: DOUGLAS TIRADO on 01/12/142203 Hydrocodone/Acetaminophen (Hydrocodone-Acetamin 7.5-325) 1 Each Tablet, 1 EACH PO Q6H PRN for PAIN-MODERATE (5-7) Prescribed by: STUART CUELLO on 02/15/21 1342 Ibuprofen (Motrin Tablet) 800 Mg Tab, 800 MG PO TID, (Reported) Entered as Reported by: MARLEN QUEZADA on 10/17/14 0733 Levothyroxine Sodium (Synthroid) 150 Mcg Tablet, 150 MCG PO DAILY, (Reported) Entered as Reported by: DOUGLAS TIRADO on 01/12/142203 Meclizine Hcl (Antivert) 25 Mg Tab, 1 TAB PO QID, (Reported) Entered as Reported by: MARLEN QUEZADA on 10/17/14 0739 Methylprednisolone (Medrol) 4 Mg Tab.ds.pk, 4 MG PO UD Prescribed by: STEPHAN ROBERT on 04/25/21 234 Metronidazole (Metronidazole) 500 Mg Tab, 500 MG PO Q8HR Prescribed by: LUZ ARREDONDO on 10/17/14 1231 Metronidazole (Metronidazole) 500 Mg Tablet, 500 MG PO BID Prescribed by: FITO ALICEA on 02/14/15 0229 Olopatadine Hcl (Pataday) 2.5 Ml Drops, 1 DROP OU DAILY PRN for ALLERGY, (Reported) Entered as Reported by: SIMON SHERIFF on 01/27/14 113 Ondansetron (Ondansetron Odt) 4 Mg Tab.rapdis, 4 MG PO Q6H PRN for NAUSEA/VOMITING Prescribed by: KASI ANDERSON on 02/14/21 2256 Phenazopyridine Hcl (Pyridium) 200 Mg Tablet, 1 EACH PO TID PRN for PAIN Prescribed by: MATT PACE on 03/05/14 0150 Promethazine/Dextromethorphan (Promethazine-Dm Syrup) 473 Ml Syrup, 5 ML PO Q4H Prescribed by: STEPHAN ROBERT on 04/25/21 2348 Ranitidine Hcl (Ranitidine Hcl) 300 Mg Tablet, 300 MG PO BID, (Reported) Entered as Reported by: SIMON SHERIFF on 01/27/14 1139 Review of Systems Review of Systems Constitutional: no symptoms reported; No fever EENTM: see HPI, nose congestion; No throat pain Respiratory: see HPI, cough, phlegm; No short of breath, No wheezing Cardiovascular: no symptoms reported; No chest pain Gastrointestinal: no symptoms reported Genitourinary: no symptoms reported Musculoskeletal: see HPI (BODY ACHES) Skin: no symptoms reported Psychiatric/Neurological: No Symptoms Reported; Denies Headache Past Yevtbts-Rztkxp-Kkvgso Hx Patient Social History Tobacco Use?: Yes Tobacco type used: Cigarettes Smoking Status: Current Everyday Smoker Substance use?: No Alcohol Use?: No Pt feels they are or have been: No Immunizations Up To Date Tetanus Booster (TDap): Unknown PED Vaccines UTD: No First/Initial COVID19 Vaccinat: jul 2020 Second COVID19 Vaccination Jermain: august 2020 COVID19 Vaccine Off Premise Service Representative: MODERNA Seasonal Allergies Seasonal Allergies: No Past Medical History Surgery/Hospitalization HX: HTN "THYROID PROBLEM" SPINAL STENOSIS 2 SECTIONS HYSTERECTOMY ARMINDA Surgeries: Yes Section, Gallbladder, Hysterectomy, Thyroidectomy Respiratory: Yes Chronic Bronchitis Cardiac: Yes Hypertension Neurological: No 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 Disorders: No 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 Sexually Transmitted Disease: No HIV/AIDS: No Genitourinary: No Gastrointestinal: Yes Colitis, Gastroesophageal Reflux Musculoskeletal: Yes Degenerate Disk Disease, Chronic Back Pain Endocrine: Yes (OBESITY) Hypothyroidsim Loss of Vision: Denies Hearing Impairment: Denies Thyroid Psychosocial: No Integumentary: No Blood Disorders: No Family Medical History Alcoholism 19 FATHER G8 BROTHER Alzheimer's disease 19 MOTHER Cancer of mouth G8 BROTHER Cataracts 19 MOTHER Drug abuse G8 BROTHER FHx: lung cancer 19 FATHER Hypertension 19 FATHER 19 MOTHER G8 BROTHER G8 SISTER Respiratory disorder 19 FATHER Thyroid disease G8 SISTER No Pertinent Family Hx Physical Exam Vital Signs - First Documented Capillary Refill : Less Than 3 Seconds Height: 5'3" Weight: 268lbs. 6.0oz. 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, no motor/sensory deficits, alert, normal mood/affect, oriented x 3 Skin: normal color, warm/dry Progress/Results/Core Measures Suspected Sepsis SIRS Temperature: Pulse: 85 Respiratory Rate: 20 Blood Pressure 140 /78 Mean: 98 Results/Orders Lab Results Laboratory Tests Test 04/25/21 22:55 Range/Units Influenza Type A (RT-PCR) Not Detected Not Detecte Influenza Type B (RT-PCR) Not Detected Not Detecte SARS-CoV-2 RNA (RT-PCR) Not Detected Not Detecte My Orders Orders - STEPHAN ROBERT DO Influenza A And B By Pcr (04/25/21 22:50) Covid 19 Inhouse Test (04/25/21 22:50) Ceftriaxone (Rocephin) (04/25/21 23:45) Lidocaine 1% Inj 20 Ml (Xylocaine 1% Inj (04/25/21 23:45) Benzonatate Capsule (Tessalon Perles) (04/25/21 23:45) Medications Given in ED Current Medications Medications Dose Ordered Sig/Nasim Route Start Time Stop Time Status Last Admin Dose Admin Ceftriaxone Sodium 1,000 mg ONCE ONCE IM 04/25/21 23:45 04/25/21 23:47 DC 04/25/21 23:58 1,000 MG Lidocaine HCl 2.1 ml ONCE ONCE INJ 04/25/21 23:45 04/25/21 23:47 DC 04/25/21 23:58 2.1 ML Vital Signs/I&O 04/25/21 04/25/21 04/26/21 22:48 22:48 00:15 Temp 36.3 36.3 Pulse 85 78 Resp 20 18 B/P (MAP) 140/78 (98) 144/98 Pulse Ox 96 97 O2 Delivery Room Air Room Air Room Air Capillary Refill : Less Than 3 Seconds Blood Pressure Mean: 98 Progress Note : Progress Note PLACED IN ISOLATION ROOM PPE WORN AT ALL TIMES COVID-19 TESTING PERFORMED UNEVENTFUL ER STAY NO HYPOXIA NO DYSPNEA NO FEVER VITALS STABLE Departure Impression Primary Impression: Bronchitis Disposition: HOME, SELF-CARE Condition: Stable Departure-Patient Inst. Decision time for Depature: 23:40 Referrals: LUZ ARREDONDO MD (PCP/Family) Primary Care Physician Patient Instructions: Acute Bronchitis, Adult (DC) Add. Discharge Instructions: LOTS OF CLEAR LIQUIDS TYLENOL AND MOTRIN NEEDED FOR PAIN OR FEVER FOLLOW UP WITH DR. ARREDONDO IN 2-3 DAYS IF NO BETTER, RETURN TO ER IF WORSE All discharge instructions reviewed with patient and/or family. Voiced understanding. Scripts Promethazine/Dextromethorphan (Promethazine-Dm Syrup) 473 Ml Syrup 5 ML PO Q4H for Cough, #200 ML Prov: STEPHAN ROBERT DO 04/25/21 Benzonatate (TESSALON PERLES) 100 Mg Capsule 200 MG PO TID, #50 CAP Prov: STEPHAN ROBERT DO 04/25/21 Methylprednisolone (Medrol) 4 Mg Tab.ds.pk 4 MG PO UD for 6 Days, #21 PKG PER DOSE PACK INSTRUCTIONS Prov: STEPHAN ROBERT DO 04/25/21 Doxycycline Hyclate (Doxycycline Hyclate) 100 Mg Tablet 100 MG PO BID, #20 TAB 0 Refills Prov: STEPHAN ROBERT DO 04/25/21 STEPHAN ROBERT DO Apr 25, 2021 23:48
[2021-04-26 00:15] VITALS: BP 144/98
== END 2021-04-26 00:15 | disposition home or self-care (01) ==
LOC: EDUNIT# 22:18 → ER 22:19
DX: J40 Bronchitis, not specified as acute or chronic (principal); I10 Essential (primary) hypertension; K21.9 Gastro-esophageal reflux disease without esophagitis; E03.9 Hypothyroidism, unspecified; G89.29 Other chronic pain; M54.9 Dorsalgia, unspecified; E66.9 Obesity, unspecified; F17.210 Nicotine dependence, cigarettes, uncomplicated; Z68.42 Body mass index [BMI] 45.0-49.9, adult; Z20.822 Contact with and (suspected) exposure to COVID-19; Z79.890 Hormone replacement therapy; Z79.891 Long term (current) use of opiate analgesic; Z79.899 Other long term (current) drug therapy
CPT/HCPCS: 87636; 96372

== ENCOUNTER 2022-05-08 14:21 | Emergency (ER) | payer SELFPAY ==
[~2022-05-08] VITALS: Ht 160 cm; Wt 123.8 kg
[~2022-05-08 14:21] MED LIST changes: +BENZ100C18 PO; +D-ME473S11 PO; +DOXY100T2 PO; +METH4TAB PO
--- NOTE | 2022-05-08 14:47 | ED Respiratory ---
General Chief Complaint: Respiratory Problems Stated Complaint: PNEUMONIA | LOW OXYGEN LEVELS Nursing Triage Note: RECENTLY DX WITH PNEUMONIA AND PUT ON AUGMENTIN AND DOXY WHICH ARE MAKING HER SICKTO HER STOMACH. DX WITH FLU LAST WEEK. COVID IN FEB. Source: patient Exam Limitations: no limitations History of Present Illness Date Seen by Provider: May 08, 2022 Time Seen by Provider: 14:35 Initial Comments Patient is a 57-year-old female history of hypertension presents to the emergency department short of breath with reportedly oxygen saturations at 88/89% at home. She is a long-term smoker, uses inhalers. She tells me she was diagnosed with influenza Saturday, 7 days ago. She was put on azithromycin at that time all as well as Tamiflu. She was only able to take 2 doses of the tamiflu. Patient states she went back to [facility] on Saturday and was started on doxycycline and Augmentin. She has been unable to take these medications due to her nausea. She denies chest pain, diaphoresis. No abdominal pain. She has lost about 8 pounds since her diagnosis of the fluids 6 days ago. No diarrhea, black or bloody stools. No problems with urination. Family member at the bedside says everybody has had COVID, flu and RSV. Patient's last bout with COVID was in February. All other review of systems reviewed and negative except as stated. Timing/Duration: week Severity: moderate Prior Episodes/Possible Cause: illness exposure Modifying Factors: Worse With Activity; Improves With Albuterol Inhaler, Improves With Oxygen, Improves With Rest Associated Symptoms: cough, lightheadedness, nasal congestion, shortness of breath, other (Week) Allergies and Home Medications Allergies Coded Allergies: acetaminophen (Unverified Allergy, Mild, 01/12/14) anger oxycodone (Unverified Allergy, Mild, 01/12/14) anger Patient Home Medication List Home Medication List Reviewed: Yes Albuterol (Proventil) 17 Gm Inh, 1-2 PUFF IH Q4H PRN for SHORTNESS OF BREATH, (Reported) Entered as Reported by: DOUGLAS TIRADO on 01/12/142203 Amlodipine Besylate (Amlodipine Besylate) 5 Mg Tablet, 5 MG PO DAILY, (Reported) Entered as Reported by: DOUGLAS TIRADO on 01/12/142203 Benzonatate (Tessalon Perles) 100 Mg Capsule, 200 MG PO TID Prescribed by: STPEHAN ROBERT on 04/25/212347 Cefdinir (Cefdinir) 300 Mg Capsule, 300 MG PO BID Prescribed by: KASI ANDERSON on 02/14/21 225 Ciprofloxacin HCl (Cipro) 500 Mg Tablet, 500 MG PO BID Prescribed by: LUZ ARREDONDO on 10/17/14 1231 Ciprofloxacin HCl (Ciprofloxacin HCl) 500 Mg Tablet, 500 MG PO BID Prescribed by: FITO ALICEA on 02/14/15 0229 Clonidine HCl (Catapres) 0.1 Mg Tablet, 0.1 MG PO BID, (Reported) Entered as Reported by: DOUGLAS TIRADO on 01/12/142203 Cyclobenzaprine Hcl (Cyclobenzaprine Hcl) 10 Mg Tablet, 10 MG PO TID PRN for PAIN, (Reported) Entered as Reported by: SIMON SHERIFF on 01/27/14 1139 Doxycycline Hyclate (Doxycycline Hyclate) 100 Mg Tablet, 100 MG PO BID Prescribed by: STEPHAN ROBERT on 04/25/212347 Hctz/Lisinopril (Lisinopril-Hctz 20-25MG Tab) 1 Tab Tablet, 1 TAB PO DAILY, (Reported) Entered as Reported by: DOUGLAS TIRADO on 01/12/142203 Hydrocodone/Acetaminophen (Hydrocodone-Acetamin 7.5-325) 1 Each Tablet, 1 EACH PO Q6H PRN for PAIN-MODERATE (5-7) Prescribed by: STUART CUELLO on 02/15/21 1342 Ibuprofen (Motrin Tablet) 800 Mg Tab, 800 MG PO TID, (Reported) Entered as Reported by: MARLEN QUEZADA on 10/17/14 0733 Levothyroxine Sodium (Synthroid) 150 Mcg Tablet, 150 MCG PO DAILY, (Reported) Entered as Reported by: DOUGLAS TIRADO on 01/12/142203 Meclizine Hcl (Antivert) 25 Mg Tab, 1 TAB PO QID, (Reported) Entered as Reported by: MARLEN QUEZADA on 10/17/14 0739 Methylprednisolone (Medrol) 4 Mg Tab.ds.pk, 4 MG PO UD Prescribed by: STEPHAN ROBERT on 11/16/21 2348 Metronidazole (Metronidazole) 500 Mg Tab, 500 MG PO Q8HR Prescribed by: LUZ ARREDONDO on 10/17/14 1231 Metronidazole (Metronidazole) 500 Mg Tablet, 500 MG PO BID Prescribed by: FITO ALICEA on 02/14/15 0229 Olopatadine Hcl (Pataday) 2.5 Ml Drops, 1 DROP OU DAILY PRN for ALLERGY, (Reported) Entered as Reported by: SIMON SHERIFF on 01/27/14 1139 Ondansetron (Ondansetron Odt) 4 Mg Tab.rapdis, 4 MG PO Q6H PRN for NAUSEA/VOMITING Prescribed by: KASI ANDERSON on 02/14/21 2256 Phenazopyridine Hcl (Pyridium) 200 Mg Tablet, 1 EACH PO TID PRN for PAIN Prescribed by: MATT PACE on 03/05/14 0150 Promethazine/Dextromethorphan (Promethazine-Dm Syrup) 473 Ml Syrup, 5 ML PO Q4H Prescribed by: STEPHAN ROBERT on 04/25/21 2348 Ranitidine Hcl (Ranitidine Hcl) 300 Mg Tablet, 300 MG PO BID, (Reported) Entered as Reported by: SIMON SHERIFF on 01/27/14 1139 Review of Systems Review of Systems Constitutional: malaise, weakness Respiratory: cough, phlegm, short of breath Cardiovascular: no symptoms reported Gastrointestinal: loss of appetite, nausea Genitourinary: no symptoms reported Musculoskeletal: muscle weakness Skin: no symptoms reported Psychiatric/Neurological: No Symptoms Reported All Other Systems Reviewed Negative Unless Noted: Yes Past Amryetb-Fydyjp-Pywipz Hx Patient Social History Tobacco Use?: Yes Tobacco type used: Cigarettes Smoking Status: Current Everyday Smoker Substance use?: No Immunizations Up To Date Tetanus Booster (TDap): Unknown PED Vaccines UTD: No First/Initial COVID19 Vaccinat: jul 2020 Second COVID19 Vaccination Jermain: august 2020 COVID19 Vaccine Monitoring Manager: MIRIAM Seasonal Allergies Seasonal Allergies: No Past Medical History Surgery/Hospitalization HX: HTN "THYROID PROBLEM" SPINAL STENOSIS 2 SECTIONS HYSTERECTOMY ARMINDA Surgeries: Yes Section, Gallbladder, Hysterectomy, Thyroidectomy Respiratory: Yes Chronic Bronchitis Cardiac: Yes Hypertension Neurological: No 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 Disorders: 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 Sexually Transmitted Disease: No HIV/AIDS: No Genitourinary: No Gastrointestinal: Yes Colitis, Gastroesophageal Reflux Musculoskeletal: Yes Degenerate Disk Disease, Chronic Back Pain Endocrine: Yes (OBESITY) Hypothyroidsim Loss of Vision: Denies Hearing Impairment: Denies Thyroid Psychosocial: No Integumentary: No Blood Disorders: No Family Medical History Alcoholism 19 FATHER G8 BROTHER Alzheimer's disease 19 MOTHER Cancer of mouth G8 BROTHER Cataracts 19 MOTHER Drug abuse G8 BROTHER FHx: lung cancer 19 FATHER Hypertension 19 FATHER 19 MOTHER G8 BROTHER G8 SISTER Respiratory disorder 19 FATHER Thyroid disease G8 SISTER No Pertinent Family Hx Physical Exam Vital Signs - First Documented 05/08/22 14:27 Temp 36.7 Pulse 78 Resp 18 B/P (MAP) 150/88 (108) Pulse Ox 91 O2 Delivery Room Air Capillary Refill : Less Than 3 Seconds Height: 5'3" Weight: 268lbs. 6.0oz. 121.652164bw; 48.00 BMI Method:Stated General Appearance: WD/WN, no apparent distress Eyes: Bilateral Eye Normal Inspection, Bilateral Eye PERRL, Bilateral Eye EOMI HEENT: other (Dry oral mucosa) Neck: normal inspection Respiratory: no respiratory distress, no accessory muscle use, crackles (Bases bilaterally) Cardiovascular: regular rate, rhythm Gastrointestinal: normal bowel sounds, non tender, soft Extremities: normal range of motion, non-tender, normal inspection, no pedal edema, no calf tenderness Neurologic/Psychiatric: alert, normal mood/affect, oriented x 3 Skin: normal color, warm/dry Progress/Results/Core Measures Suspected Sepsis SIRS Temperature: Pulse: 78 Respiratory Rate: 18 Laboratory Tests 05/08/22 14:30: White Blood Count 14.5H Blood Pressure 150 /88 Mean: 108 Laboratory Tests 05/08/22 14:30: Creatinine 0.99, Platelet Count 255, Total Bilirubin 0.4 Results/Orders Lab Results Laboratory Tests Test 05/08/22 14:30 Range/Units White Blood Count 14.5 H 4.3-11.0 10^3/uL Red Blood Count 5.05 3.80-5.11 10^6/uL Hemoglobin 14.5 11.5-16.0 g/dL Hematocrit 44 35-52 % Mean Corpuscular Volume 86 80-99 fL Mean Corpuscular Hemoglobin 29 25-34 pg Mean Corpuscular Hemoglobin Concent 33 32-36 g/dL Red Cell Distribution Width 13.7 10.0-14.5 % Platelet Count 255 130-400 10^3/uL Mean Platelet Volume 11.3 9.0-12.2 fL Immature Granulocyte % (Auto) 0 % Neutrophils (%) (Auto) 62 42-75 % Lymphocytes (%) (Auto) 29 12-44 % Monocytes (%) (Auto) 8 0-12 % Eosinophils (%) (Auto) 1 0-10 % Basophils (%) (Auto) 0 0-10 % Neutrophils # (Auto) 9.0 H 1.8-7.8 10^3/uL Lymphocytes # (Auto) 4.1 H 1.0-4.0 10^3/uL Monocytes # (Auto) 1.1 H 0.0-1.0 10^3/uL Eosinophils # (Auto) 0.1 0.0-0.3 10^3/uL Basophils # (Auto) 0.0 0.0-0.1 10^3/uL Immature Granulocyte # (Auto) 0.1 0.0-0.1 10^3/uL Neutrophils % (Manual) 72 % Lymphocytes % (Manual) 22 % Monocytes % (Manual) 6 % Eosinophils % (Manual) 0 % Basophils % (Manual) 0 % Band Neutrophils 0 % Blood Morphology Comment NORMAL Sodium Level 137 135-145 MMOL/L Potassium Level 2.8 L 3.6-5.0 MMOL/L Chloride Level 100 98-107 MMOL/L Carbon Dioxide Level 23 21-32 MMOL/L Anion Gap 14 5-14 MMOL/L Blood Urea Nitrogen 17 7-18 MG/DL Creatinine 0.99 0.60-1.30 MG/DL Estimat Glomerular Filtration Rate 67 BUN/Creatinine Ratio 17 Glucose Level 121 H 70-105 MG/DL Calcium Level 8.4 L 8.5-10.1 MG/DL Corrected Calcium 8.8 8.5-10.1 MG/DL Total Bilirubin 0.4 0.1-1.0 MG/DL Aspartate Amino Transf (AST/SGOT) 18 5-34 U/L Alanine Aminotransferase (ALT/SGPT) 56 H 0-55 U/L Alkaline Phosphatase 78 40-136 U/L C-Reactive Protein High Sensitivity 1.89 H 0.00-0.50 MG/DL Total Protein 6.6 6.4-8.2 GM/DL Albumin 3.5 3.2-4.5 GM/DL Procalcitonin 0.05 <0.10 NG/ML My Orders Orders - STUART CUELLO MD Ed Iv/Invasive Line Start (05/08/22 14:43) Cbc With Automated Diff (05/08/22 14:43) Comprehensive Metabolic Panel (05/08/22 14:43) Procalcitonin (Pct) (05/08/22 14:43) Hs C Reactive Protein (05/08/22 14:43) Chest 1 View, Ap/Pa Only (05/08/22 14:43) Manual Differential (05/08/22 14:30) Ondansetron Injection (Zofran Injectio (05/08/22 15:15) Ns Iv 1000 Ml (Sodium Chloride 0.9%) (05/08/22 15:15) Potassium Cl 10meq/50ml Ivpb (Kcl 10 Meq (05/08/22 15:15) Medications Given in ED Current Medications Medications Dose Ordered Sig/Nasim Route Start Time Stop Time Status Last Admin Dose Admin Ondansetron HCl 4 mg ONCE ONCE IVP 05/08/22 15:15 05/08/22 15:16 DC 05/08/22 15:33 4 MG Potassium Chloride 50 ml @ 50 mls/hr ONCE ONCE IV 05/08/22 15:15 05/08/22 16:14 DC 05/08/22 15:33 50 MLS/HR Vital Signs/I&O 05/08/22 14:27 Temp 36.7 Pulse 78 Resp 18 B/P (MAP) 150/88 (108) Pulse Ox 91 O2 Delivery Room Air Capillary Refill : Less Than 3 Seconds Blood Pressure Mean: 108 Progress Note : Time: 16:41 Progress Note Patient's work-up today includes CBC, chemistry, chest x-ray. She has been influenza positive since last week. She is treated in the emergency department with IV fluids, nausea medication. She is found to be hypokalemic with a serum potassium of 2.8. She is given IV potassium. After potassium and fluids infused she was ambulated in the department and reached a sat of 88%. She has been using DuoNeb through her nebulizer at home. She is complaining of feeling generally weak which I would attribute to her hypokalemia. She is not on diuretics. Consideration for advanced imaging, CT angio of the chest to rule out PE considered however secondary to physical exam and history I did not feel it was warranted. [facility], [facility] will be bringing out oxygen for the patient as soon as possible. I recommended that she stop taking the oral antibiotics as her procalcitonin is negative, her CBC is only slightly elevated consistent with her influenza diagnosis and her chest x-ray shows no patchy consolidative pneumonia. Patient is comfortable with plan of care. All questions are sought and answered. Patient is stable for discharge. Diagnostic Imaging Comments [facility] [place], [place] NAME: GABI NG [facility] REC#: [id number] PT STATUS: REG ER : 1965 PHYSICIAN: STUART CUELLO MD ADMIT DATE: 05/08/22/ER Draft Date of Exam:05/08/22 CHEST 1 VIEW, AP/PA ONLY INDICATION: Shortness of breath and cough and nausea. TECHNIQUE: Frontal chest obtained at 02:51 p.m. and compared to 01/27/2014. FINDINGS: Heart and mediastinal silhouette are normal in appearance. Lungs are clear. There is no pneumothorax or pleural fluid. IMPRESSION: No acute process in the chest. Dictated on workstation # [id number] Dict: 05/08/22 1503 Trans: 05/08/22 1508 [id number] Interpreted by: MEGAN PRATHER MD Electronically signed by: Departure Impression Primary Impression: Hypoxia Additional Impressions: Influenza COPD (chronic obstructive pulmonary disease) Qualified Codes: J44.9 - Chronic obstructive pulmonary disease, unspecified Disposition: 01 HOME, SELF-CARE Condition: Stable Departure-Patient Inst. Decision time for Depature: 16:44 Referrals: LUZ ARREDONDO MD (PCP/Family) Primary Care Physician Patient Instructions: Hypokalemia (DC), Oxygen Therapy, Adult (DC) Add. Discharge Instructions: Use the oxygen as prescribed, 1-2L while you are up and around. Take the potassium supplement daily for 5 days. Use your nebulizer every 6 hours and inhaler every 4-6 hours for wheezing/shortness of breath. Call Dr Arredondo's office tomorrow for a follow up next week. Return to the Emergency Department for any new, concerning or emergent complaints. Scripts Potassium Chloride (K-Tab ER) 10 Meq Tablet.er 10 MEQ PO DAILY for 5 Days, #5 TAB Prov: STUART CUELLO MD 05/08/22 Copy Copies To 1: LUZ ARREDONDO MD, KATHRYN M MD May 08, 2022 14:47
[2022-05-08 14:49] LABS: BASOPHILS % (AUTO) 0 % (0-10); EOSINOPHILS # (AUTO) 0.1 10^3/uL (0.0-0.3); EOSINOPHILS % (AUTO) 1 % (0-10); HEMATOCRIT 44 % (35-52); HEMOGLOBIN 14.5 g/dL (11.5-16.0); LYMPHOCYTES # (AUTO) 4.1 10^3/uL (1.0-4.0); LYMPHOCYTES % (AUTO) 29 % (12-44); MEAN CORPUSCULAR HEMOGLOBIN 29 pg (25-34); MEAN CORPUSCULAR HGB CONC 33 g/dL (32-36); MEAN CORPUSCULAR VOLUME 86 fL (80-99); MEAN PLATELET VOLUME 11.3 fL (9.0-12.2); MONOCYTES # (AUTO) 1.1 10^3/uL (0.0-1.0); MONOCYTES % (AUTO) 8 % (0-12); NEUTROPHILS % (AUTO) 62 % (42-75); PLATELET COUNT 255 10^3/uL (130-400); WHITE BLOOD COUNT 14.5 10^3/uL (4.3-11.0)
[2022-05-08 15:04] LABS: ALBUMIN 3.5 GM/DL (3.2-4.5); BILIRUBIN,TOTAL 0.4 MG/DL (0.1-1.0); CALCIUM 8.4 MG/DL (8.5-10.1); CREATININE SERUM 0.99 MG/DL (0.60-1.30); POTASSIUM 2.8 MMOL/L (3.6-5.0); TOTAL PROTEIN 6.6 GM/DL (6.4-8.2)
[2022-05-08 15:06] LABS: BAND NEUTROPHILS 0 %; BASOPHILS % (MANUAL) 0 %; EOSINOPHILS % (MANUAL) 0 %; LYMPHOCYTES % (MANUAL) 22 %; MONOCYTES % (MANUAL) 6 %; NEUTROPHILS % (MANUAL) 72 %; RBC MORPH NORMAL
--- NOTE | 2022-05-08 15:09 | Diagnostic Imaging Report ---
INDICATION: Shortness of breath and cough and nausea. TECHNIQUE: Frontal chest obtained at 02:51 p.m. and compared to 01/27/2014. FINDINGS: Heart and mediastinal silhouette are normal in appearance. Lungs are clear. There is no pneumothorax or pleural fluid. IMPRESSION: No acute process in the chest. Dictated by: Dictated on workstation # [id number]
[2022-05-08] MEDS ORDERED: POTASSIUM CL 10MEQ/50ML IVPB 50 ML IV ONE (15:15)
[2022-05-08] MEDS ORDERED: NS IV 1000 ML 1,000 ML IV SCH (15:15)
[2022-05-08] MEDS ORDERED: ONDANSETRON 4 MG/2 ML (SDV) Z0FRAN IVP ONE (15:15)
[2022-05-08] MEDS ORDERED: POTA10TA PO (16:47)
[2022-05-08 18:06] VITALS: BP 130/74
== END 2022-05-08 18:06 | disposition home or self-care (01) ==
LOC: EDUNIT# 14:21 → ER 14:24
DX: J11.1 Influenza due to unidentified influenza virus with other respiratory manifestations (principal); J44.9 Chronic obstructive pulmonary disease, unspecified; R09.02 Hypoxemia; E87.6 Hypokalemia; E66.9 Obesity, unspecified; F17.210 Nicotine dependence, cigarettes, uncomplicated; Z68.42 Body mass index [BMI] 45.0-49.9, adult; Z86.16 Personal history of COVID-19
CPT/HCPCS: 36415; 71045; 80053; 84145; 85007; 85027; 86141

== ENCOUNTER → 2022-08-01 | Outpatient (CLI) | payer MEDICAID ==
[~2022-08-01] MED LIST changes: +POTA10TA PO
== END ==
LOC: ORTHO 10:47
PROVIDERS: ATTEND Orthopaedic Surgery
DX: M16.11 Unilateral primary osteoarthritis, right hip (principal); I10 Essential (primary) hypertension; E66.01 Morbid (severe) obesity due to excess calories; Z72.0 Tobacco use
CPT/HCPCS: 99203

== ENCOUNTER 2022-08-29 05:39 | Outpatient (CLI) | payer MEDICAID ==
[~2022-08-29] VITALS: Ht 160 cm; Wt 131.1 kg
[2022-08-30] MEDS ORDERED: MELO15TA39 PO (09:56)
[2022-08-30] MEDS ORDERED: TRAM50TA3 PO (09:56)
[2022-08-30] MEDS ORDERED: PREG75CA PO (09:56)
[2022-08-30] MEDS ORDERED: ACET325T49 PO (09:56)
[2022-08-30] MEDS ORDERED: LISI40TA9 PO (09:56)
[2022-08-30] MEDS ORDERED: CHLO25TA22 PO (09:56)
[2022-08-30] MEDS ORDERED: FAMO20TA3 PO (09:56)
[2022-08-30] MEDS ORDERED: NF-ALLE180 PO (09:56)
[2022-08-30] MEDS ORDERED: ERGO50CA PO (09:56)
== END 2022-08-30 09:58 | disposition home or self-care (01) ==
LOC: PREOP 05:39
PROVIDERS: ATTEND Surgery
DX: Z01.818 Encounter for other preprocedural examination (principal)

== ENCOUNTER 2022-09-11 12:55 | Day surgery (SDC) | payer MEDICAID ==
[~2022-09-11] VITALS: Ht 160 cm; Wt 131.1 kg
[~2022-09-11 12:55] MED LIST changes: +ACET325T49 PO; +CHLO25TA22 PO; +ERGO50CA PO; +FAMO20TA3 PO; +LISI40TA9 PO; +MELO15TA39 PO; +NF-ALLE180 PO; +PREG75CA PO; +TRAM50TA3 PO
[2022-09-11] MEDS ORDERED: LACTATED RINGERS 1,000 ML IV STA (12:57)
[2022-09-11] MEDS ORDERED: HURRICAINE EXT TUBE (BENZOCAINE) XX PRN (13:00)
[2022-09-11] MEDS ORDERED: ONDANSETRON 4 MG/2 ML (SDV) Z0FRAN ONE (13:06)
[2022-09-11] MEDS ORDERED: ONDANSETRON 4 MG/2 ML (SDV) Z0FRAN IVP ONE (13:15)
[2022-09-11 13:19] VITALS: BP 126/74
[2022-09-11] MEDS ORDERED: PROPOFOL INJECTION 50 ML IV ONE ×2 (13:27→15:12)
[2022-09-11 14:40] VITALS: BP 115/73
[2022-09-11 15:22] VITALS: BP 139/79
--- NOTE | 2022-09-11 15:24 | Anesthesia-General Post-Op ---
MAC Patient Condition Mental Status/LOC: Same as Preop Cardiovascular: Satisfactory Nausea/Vomiting: Absent Respiratory: Satisfactory Pain: Controlled Complications: Absent Post Op Complications Complications None Follow Up Care/Instructions Patient Instructions None needed. Anesthesiology Discharge Order Discharge Order Patient is doing well, no complaints, stable vital signs, no apparent adverse anesthesia problems. No complications reported per nursing. KARAN MANN CRNA Sep 11, 2022 15:24
[2022-09-11 15:27] VITALS: BP 132/75
[2022-09-11 15:30] VITALS: BP 132/75
--- NOTE | 2022-09-11 15:31 | Discharge Inst-Simple/Standard ---
Discharge Inst-Standard Patient Instructions/Follow Up Plan of Care/Instructions/FU: 2 weeks Jose Activity as Tolerated: Yes Discharge Diet: Regular Diet (high fiber) OLIVIA VARGAS DO Sep 11, 2022 15:31
--- NOTE | 2022-09-11 15:33 | Progress Note-Post Operative ---
Post-Operative Progess Note Surgeon (s)/Cnc Laser Operator (s) Surgeon OLIVIA VARGAS DO Cnc Laser Operator: na Pre-Operative Diagnosis screening colonscopy, GERD Post-Operative Diagnosis diverticulosis, normal egd Procedure & Operative Findings Date of Procedure 09/11/22 Procedure Performed/Findings egd c biopsies, colonoscopy Anesthesia Type per explosive ordnance disposal manager Estimated Blood Loss Estimated blood loss (mL): none Specimens/Packing Specimens Removed antrum, ge OLIVIA VARGAS DO Sep 11, 2022 15:33
[2022-09-11 15:53] VITALS: BP 132/75
--- NOTE | 2022-09-11 23:16 | OPERATIVE REPORT ---
DATE OF SERVICE: 09/11/2022 PREOPERATIVE DIAGNOSES: Gastroesophageal reflux disease and screening colonoscopy. POSTOPERATIVE DIAGNOSES: Normal EGD, diverticulosis. PROCEDURES: EGD with biopsies, colonoscopy. SURGEON: Olivia Garcia DO ANESTHESIA: Per CURING PRESS MAINTAINER. ESTIMATED BLOOD LOSS: None. COMPLICATIONS: None. INDICATIONS: The patient is a 57-year-old female for screening colonoscopy and EGD for screening and gastroesophageal reflux disease. She understands risks and benefits of procedure and wished to proceed. Consent was signed in chart. DESCRIPTION OF PROCEDURE: The patient was taken to endoscopy suite, placed in left lateral recumbent position. Timeout was performed. Scope was inserted in the mouth, down the esophagus, stomach, into the duodenum without difficulty. No polyps, masses or ulcerations. Scope was slowly retracted back until stomach where it was further insufflated. No polyps, masses or ulcerations. Biopsy of the antrum was obtained. Scope was retroflexed noting no other pathology. Scope was returned to its normal position, slowly withdrawn until distal esophagus. Biopsy of GE junction was obtained. No polyps, masses or ulcerations. Scope was slowly retracted back until completely removed, noting no other pathology. Digital rectal exam was performed. No palpable polyps, masses or ulcerations. Scope was inserted in the rectum, advanced all the way to cecum with minimal difficulty. Prep was adequate. Scope was slowly retracted back. No polyps, masses or ulcerations within the cecum, ascending, transverse, descending and sigmoid colon. Sigmoid colon had some diverticulosis present. Scope was then slowly retracted back in the stomach where it was further insufflated and retroflexed. No other pathology noted. Scope was returned to its normal position, slowly withdrawn until completely removed. The patient tolerated the procedure well without any complications, taken to recovery room in stable condition. RECOMMENDATIONS: The patient will need repeat colonoscopy in 10 years unless family history of colon cancer, which will then be 5 years. Any issues before that, be seen at that time. Because of diverticulosis, we would recommend high fiber diet. The patient will follow up in 2 weeks to discuss pathology results from the upper EGD. Continue on current medications at this time. May adjust depending on pathology results. Job ID: [id number] DocumentID: [id number] Dictated Date: 09/11/2022 15:36:51 Foster Care Therapist Date: 09/11/2022 23:13:00 Dictated By: OLIVIA GARCIA DO
== END 2022-09-11 15:56 | disposition home or self-care (01) ==
LOC: ENDO 12:55
PROVIDERS: ATTEND Surgery
DX: Z12.11 Encounter for screening for malignant neoplasm of colon (principal); K57.30 Diverticulosis of large intestine without perforation or abscess without bleeding; K21.00 Gastro-esophageal reflux disease with esophagitis, without bleeding; K31.89 Other diseases of stomach and duodenum; F17.210 Nicotine dependence, cigarettes, uncomplicated; Z80.0 Family history of malignant neoplasm of digestive organs; E66.01 Morbid (severe) obesity due to excess calories; Z68.43 Body mass index [BMI] 50.0-59.9, adult

== ENCOUNTER 2022-09-14 20:37 | Outpatient (CLI) | payer MEDICAID | END 2022-09-15 06:37 | disposition home or self-care (01) | LOC: SLEEP 20:37 | PROVIDERS: ATTEND Family Medicine | DX: G47.33 Obstructive sleep apnea (adult) (pediatric) (principal); G47.34 Idiopathic sleep related nonobstructive alveolar hypoventilation; J44.9 Chronic obstructive pulmonary disease, unspecified; R51.9 Headache, unspecified | CPT/HCPCS: 95811 ==

== ENCOUNTER 2023-01-05 11:45 | Emergency (ER) | payer MEDICAID ==
[~2023-01-05] VITALS: Ht 180 cm; Wt 111.0 kg
[~2023-01-05 11:45] MED LIST changes: -D-ME473S11 PO; +POTA-185 PO; -POTA10TA PO; +PROM473S15 PO
[2023-01-05] MEDS ORDERED: ORPHENADRINE 60 MG/2 ML (NORFLEX) AMP (ED ONLY) IM ONE (12:15)
[2023-01-05] MEDS ORDERED: dexAMETHasone INJ 10 MG/ML 1 ML VIAL IM ONE (12:15)
[2023-01-05] MEDS ORDERED: KETOROLAC 30 MG/ML VIAL IM ONE (12:15)
[2023-01-05] MEDS ORDERED: LIDOCAINE 4% (SALONPAS) PATCH ONE (12:16)
--- NOTE | 2023-01-05 12:24 | ED Back Pain ---
General Chief Complaint: Back Problems Stated Complaint: BACK PAIN Nursing Triage Note: pt presents to ed via pov from home with complaints of low r sided back pain since saturday. pt reports she felt pain after bending over to pick up attendant a grocery bag off the floor of the car. Source of Information: Patient Exam Limitations: No Limitations History of Present Illness Date Seen by Provider: Jan 05, 2023 Time Seen by Provider: 11:57 Initial Comments 57-year-old female presents to the ER with complaints of lower back pain which started on Saturday after reaching for a bag of groceries. She reports that the pain is in her lower spine, and radiates towards the right side. Patient reports a long history of back pain, and states that she has injured her back like this previously, but states that normally it starts to feel better after 3 to 4 days. States that this time it is not getting any better. She has prescriptions for tramadol and meloxicam which she has been taking. She also has been taking Tylenol and her Lyrica. She has not been using ice or heat, but she has been using her TENS unit. She states she is not getting any relief from any of her interventions. She had an MRI in August of this year which showed bulging disks, spondylosis, degenerative disc disease, spinal stenosis, and neuroforaminal stenosis. She is scheduled to see a pain specialist next week on January 10 for her back. She reports numbness and tingling in her feet, states t hat this is chronic, no change in this. Denies saddle paresthesia. Reports that she is always incontinent of urine, she has not had any incontinence of bowel. Patient is able to walk, she denies any weakness in her legs. She denies fevers, abdominal pain, dysuria. Allergies and Home Medications Allergies Coded Allergies: acetaminophen (Unverified Allergy, Mild, 01/12/14) anger oxycodone (Unverified Allergy, Mild, 01/12/14) anger Patient Home Medication List Home Medication List Reviewed: Yes Acetaminophen (Acetaminophen) 325 Mg Tablet, 325 MG PO Q4H, (Reported) Entered as Reported by: RIANA POWELL on 08/30/22 0956 Albuterol (Proventil) 17 Gm Inh, 1-2 PUFF IH Q4H PRN for SHORTNESS OF BREATH, (Reported) Entered as Reported by: DOUGLAS TIRADO on 01/12/142203 Chlorthalidone (Chlorthalidone) 25 Mg Tablet, 25 MG PO DAILY, (Reported) Entered as Reported by: RIANA POWELL on 08/30/22955 Clonidine HCl (Catapres) 0.1 Mg Tablet, 0.1 MG PO BID, (Reported) Entered as Reported by: DOUGLAS TIRADO on 01/12/142203 Cyclobenzaprine HCl (Cyclobenzaprine HCl) 10 Mg Tablet, 10 MG PO TID Prescribed by: Suyapa Roper on 01/05/23 130 Ergocalciferol (Vitamin D2) (Vitamin D2) 50 Mcg (2000 Unit) Capsule, 50 MCG PO DAILY, (Reported) Entered as Reported by: RIANA POWELL on 08/30/22955 Famotidine (Acid Warehouse Helper (FAMOTIDINE)) 20 Mg Tablet, 20 MG PO DAILY, (Reported) Entered as Reported by: RIANA POWELL on 08/30/22955 Fexofenadine HCl (Fexofenadine HCl) 180 Mg Tablet, 180 MG PO DAILY, (Reported) Entered as Reported by: RIANA POWELL on 08/30/22955 Levothyroxine Sodium (Synthroid) 150 Mcg Tablet, 150 MCG PO DAILY, (Reported) Entered as Reported by: DOUGLAS TIRADO on 01/12/142203 Lidocaine (Salonpas) 4 % Adh..patch, 1 EACH TP Q12H Prescribed by: Suyapa Roper on 01/05/231305 Lisinopril (Lisinopril) 40 Mg Tablet, 40 MG PO DAILY, (Reported) Entered as Reported by: RIANA POWELL on 08/30/22955 Meloxicam (Meloxicam) 15 Mg Tablet, 15 MG PO DAILY, (Reported) Entered as Reported by: RIANA POWELL on 08/30/22955 Methylprednisolone (Methylprednisolone Dose Pack) 4 Mg Tab.ds.pk, 4 MG PO UD Prescribed by: Suyapa Roper on 01/05/23 130 Pregabalin (Lyrica) 75 Mg Capsule, 75 MG PO DAILY, (Reported) Entered as Reported by: RIANA POWELL on 08/30/22955 Tramadol HCl (Tramadol HCl) 50 Mg Tablet, 50 MG PO PRN, (Reported) Entered as Reported by: RIANA POWELL on 08/30/22 0956 Review of Systems Constitutional: see HPI Past Avqexrq-Otjqke-Tckgjx Hx Patient Social History Tobacco Use?: Yes Smoking Status: Current Everyday Smoker Substance use?: No Alcohol Use?: No Pt feels they are or have been: No Immunizations Up To Date Tetanus Booster (TDap): Unknown PED Vaccines UTD: No First/Initial COVID19 Vaccinat: YES Second COVID19 Vaccination Jermain: YES Third COVID19 Vaccination Date: YES Seasonal Allergies Seasonal Allergies: No Past Medical History Surgery/Hospitalization HX: HTN THYROID ca SPINAL STENOSIS 2 SECTIONS HYSTERECTOMY ARMINDA osteoarthritis thyroidectomy, c-sec, hyst, gall Surgeries: Yes Section, Gallbladder, Hysterectomy, Thyroidectomy Respiratory: Yes Chronic Bronchitis Cardiac: Yes Hypertension Neurological: No 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 Disorders: 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 Sexually Transmitted Disease: No HIV/AIDS: No Genitourinary: No Gastrointestinal: Yes Colitis, Gastroesophageal Reflux Musculoskeletal: Yes Degenerate Disk Disease, Chronic Back Pain Endocrine: Yes (OBESITY) Hypothyroidsim Loss of Vision: Denies Hearing Impairment: Denies Cancer: Yes Thyroid Psychosocial: No Integumentary: No Blood Disorders: No Family Medical History Alcoholism 19 FATHER G8 BROTHER Alzheimer's disease 19 MOTHER Cancer of mouth G8 BROTHER Cataracts 19 MOTHER Drug abuse G8 BROTHER FHx: lung cancer 19 FATHER Hypertension 19 FATHER 19 MOTHER G8 BROTHER G8 SISTER Respiratory disorder 19 FATHER Thyroid disease G8 SISTER No Pertinent Family Hx Physical Exam Vital Signs Vital Signs - First Documented 01/05/23 11:58 Temp 37.2 Pulse 74 Resp 16 B/P (MAP) 120/75 (90) Pulse Ox 94 Capillary Refill : Less Than 3 Seconds Height, Weight, BMI Height: 5'3" Weight: 268lbs. 6.0oz. 121.342724qg; 34.00 BMI Method:Stated General Appearance: WD/WN, Mild Distress Neck: Normal Inspection, Supple Cardiovascular: Regular Rate, Rhythm Respiratory: Lungs Clear, Normal Breath Sounds, No Accessory Muscle Use, No Respiratory Distress Back: Normal Inspection, Vertebral Tenderness (lumbar spine) Extremity: Normal Inspection, Normal Range of Motion Neurologic/Psychiatric: Alert, No Motor/Sensory Deficits, Normal Mood/Affect Skin: Normal Color, Warm/Dry Progress/Results/Core Measures Results/Orders My Orders Orders - SUYAPA ENCINAS APRN Ketorolac Injection (Toradol Injection) (01/05/23 12:15) Orphenadrine Inj (Ed Only) (Norflex Inje (01/05/23 12:15) Dexamethasone Injection (Decadron Inje (01/05/23 12:15) Lidocaine 4% Patch (Salonpas 4% Patch) (01/06/23 09:00) Lidocaine 4% Patch (Salonpas 4% Patch) (01/05/23 12:16) Medications Given in ED Current Medications Medications Dose Ordered Sig/Nasim Route Start Time Stop Time Status Last Admin Dose Admin Dexamethasone Sodium Phosphate 10 mg ONCE ONCE IM 01/05/23 12:15 01/05/23 12:16 DC 01/05/23 12:18 10 MG Ketorolac Tromethamine 30 mg ONCE ONCE IM 01/05/23 12:15 01/05/23 12:16 DC 01/05/23 12:18 30 MG Orphenadrine Citrate 60 mg ONCE ONCE IM 01/05/23 12:15 01/05/23 12:16 DC 01/05/23 12:19 60 MG Vital Signs/I&O 01/05/23 01/05/23 11:58 13:14 Temp 37.2 Pulse 74 70 Resp 16 18 B/P (MAP) 120/75 (90) 167/95 Pulse Ox 94 99 Blood Pressure Mean: 90 Progress Progress Note : Progress Note Patient seen and evaluated, sitting on her walker seat, mild distress due to pain. This is likely musculoskeletal strain to her back, will treat with Toradol, Norflex, Decadron, and a lidocaine patch. No concern for cauda equina syndrome or bulging discs leading to pressure on the nerves. 1301 patient reports some relief in pain. Will discharge with prescription for Flexeril, Medrol Dosepak, and lidocaine patches. Discharge instructions and return precautions provided. Departure Impression Primary Impression: Lumbar sprain Qualified Codes: S33.5XXA - Sprain of ligaments of lumbar spine, initial encounter Disposition: 01 HOME, SELF-CARE Condition: Stable Departure-Patient Inst. Decision time for Depature: 13:02 Referrals: LUZ ARREDONDO MD (PCP/Family) Primary Care Physician Patient Instructions: Low Back Pain (DC) Add. Discharge Instructions: Take Flexeril up to 3 times a day as needed for pain, it may make you sleepy. Take the Medrol Dosepak as prescribed. Use the lidocaine patches. Apply and keep in place for 12 hours, then remove and go without a patch for 12 hours before applying another one. Make sure you clean your skin well prior to using your TENS unit. Continue taking your home medications as prescribed including your tramadol and meloxicam. You may also continue to take Tylenol as needed. Follow-up with your primary care provider and pain management. Return for inability to walk, numbness or tingling in your inner thighs or groin area, bowel incontinence or worsening bladder incontinence, or any other new, concerning, or worsening symptoms. All discharge instructions reviewed with patient and/or family. Voiced understanding. Scripts Cyclobenzaprine HCl (Cyclobenzaprine HCl) 10 Mg Tablet 10 MG PO TID, #21 TAB 0 Refills Prov: SUYAPA ENCINAS APRN 01/05/23 Methylprednisolone (Methylprednisolone Dose Pack) 4 Mg Tab.ds.pk 4 MG PO UD for 6 Days, #21 PKG 0 Refills PER DOSE PACK INSTRUCTIONS Prov: SUYAPA ENCINAS APRN 01/05/23 Lidocaine (Salonpas) 4 % Adh..patch 1 EACH TP Q12H, #14 PATCH 0 Refills Wear for 12 hours, then go patch free for 12 hours prior to placing another patch. Prov: SUYAPA ENCINAS APRN 01/05/23 SUYAPA ENCINAS APRN Jan 05, 2023 12:24
[2023-01-05] MEDS ORDERED: CYCL10TA25 PO (13:06)
[2023-01-05] MEDS ORDERED: LIDO1ADH74 TP (13:06)
[2023-01-05] MEDS ORDERED: METH4TAB10 PO (13:06)
[2023-01-05 13:14] VITALS: BP 167/95
[2023-01-06] MEDS ORDERED: LIDOCAINE 4% (SALONPAS) PATCH TOP SCH (09:00)
== END 2023-01-05 13:14 | disposition home or self-care (01) ==
LOC: EDUNIT# 11:45 → ER 11:47
DX: S33.5XXA Sprain of ligaments of lumbar spine, initial encounter (principal); F17.200 Nicotine dependence, unspecified, uncomplicated; E66.9 Obesity, unspecified; Z68.34 Body mass index [BMI] 34.0-34.9, adult; Z88.6 Allergy status to analgesic agent; X50.0XXA Overexertion from strenuous movement or load, initial encounter
CPT/HCPCS: 99284

== ENCOUNTER 2023-03-22 22:17 | Emergency (ER) | payer MEDICAID ==
[~2023-03-22] VITALS: Ht 160 cm; Wt 111.0 kg
[~2023-03-22 22:17] MED LIST changes: +CYCL10TA25 PO; +FAMO-356 PO; -FAMO20TA3 PO; +LIDO1ADH74 TP; +METH4TAB10 PO
[2023-03-22] MEDS ORDERED: RT-Ipratropium/Albuterol NEB 3 ML VIAL INH ONE (22:45)
[2023-03-22] MEDS ORDERED: predniSONE 20 MG TABLET PO ONE (22:45)
--- NOTE | 2023-03-22 22:48 | ED Respiratory ---
General Chief Complaint: Cough/Cold/Flu Symptoms Stated Complaint: SOA Nursing Triage Note: c/o cold sx, productive cough x1 day. increased soa with exertion, reports walking alot today without wearing o2. Source: patient Exam Limitations: no limitations History of Present Illness Date Seen by Provider: Mar 22, 2023 Time Seen by Provider: 22:35 Initial Comments Patient is a 58yo female with a long history of smoking who presents to the ER with increased SOB today after her daughters wedding. She has been fighting a "cold" over the last week to 10 days and it got worse tonight. No fevers. Cough is now productive of "yellowish/green" sputum. No earache, sorethroat or runny nose. She has been taking mucinex. She continues to smoke. No N/V/D. No urinary complaints other than her normal stress incontinence when she coughs. She had contact with some "sick" grandkids last week with similar symptoms. They were covid negative - she declines covid test tonight. She does wear home O2 at night mostly and on a prn basis at home. Used her inhaler today only twice, Is out of medications for her nebulizer. No chest pain. Timing/Duration: week, getting worse Severity: moderate Prior Episodes/Possible Cause: illness exposure (grandkids) Modifying Factors: Improves With Albuterol Inhaler Associated Symptoms: cough, nasal congestion, nasal drainage, shortness of breath, other (back ache with breathing) Allergies and Home Medications Allergies Coded Allergies: acetaminophen (Unverified Allergy, Mild, 01/12/14) anger oxycodone (Unverified Allergy, Mild, 01/12/14) anger Patient Home Medication List Home Medication List Reviewed: Yes Acetaminophen (Acetaminophen) 325 Mg Tablet, 325 MG PO Q4H, (Reported) Entered as Reported by: RIANA POWELL on 08/30/22 0956 Albuterol (Proventil) 17 Gm Inh, 1-2 PUFF IH Q4H PRN for SHORTNESS OF BREATH, (Reported) Entered as Reported by: DOUGLAS TIRADO on 01/12/14 2204 Albuterol Sulfate (Albuterol Sulfate) 2.5 Mg/3 Ml (0.083 %) Vial.neb, 2.5 MG INH Q4H PRN for WHEEZING Prescribed by: STUART CUELLO on 03/23/2310 Chlorthalidone (Chlorthalidone) 25 Mg Tablet, 25 MG PO DAILY, (Reported) Entered as Reported by: RIANA POWELL on 08/30/22955 Clonidine HCl (Catapres) 0.1 Mg Tablet, 0.1 MG PO BID, (Reported) Entered as Reported by: DOUGLAS TIRADO on 01/12/142203 Cyclobenzaprine HCl (Cyclobenzaprine HCl) 10 Mg Tablet, 10 MG PO TID Prescribed by: Suyapa Roper on 01/05/23 130 Doxycycline Hyclate (Doxycycline Hyclate) 100 Mg Tablet, 100 MG PO BID Prescribed by: STUART CUELLO on 03/23/2310 Ergocalciferol (Vitamin D2) (Vitamin D2) 50 Mcg (2000 Unit) Capsule, 50 MCG PO DAILY, (Reported) Entered as Reported by: RIANA POWELL on 08/30/22955 Famotidine (Acid Last Model Department Supervisor (FAMOTIDINE)) 20 Mg Tablet, 20 MG PO DAILY, (Reported) Entered as Reported by: RIANA POWELL on 08/30/22955 Fexofenadine HCl (Fexofenadine HCl) 180 Mg Tablet, 180 MG PO DAILY, (Reported) Entered as Reported by: RIANA POWELL on 08/30/22955 Levothyroxine Sodium (Synthroid) 150 Mcg Tablet, 150 MCG PO DAILY, (Reported) Entered as Reported by: DOUGLAS TIRADO on 01/12/142203 Lidocaine (Salonpas) 4 % Adh..patch, 1 EACH TP Q12H Prescribed by: Suyapa Roper on 01/05/231305 Lisinopril (Lisinopril) 40 Mg Tablet, 40 MG PO DAILY, (Reported) Entered as Reported by: RIANA POWELL on 08/30/22955 Meloxicam (Meloxicam) 15 Mg Tablet, 15 MG PO DAILY, (Reported) Entered as Reported by: RIANA POWELL on 08/30/22955 Methylprednisolone (Methylprednisolone Dose Pack) 4 Mg Tab.ds.pk, 4 MG PO UD Prescribed by: Suyapa Roper on 01/05/23 130 Prednisone (Prednisone) 50 Mg Tab, 50 MG PO DAILY Prescribed by: STUART CUELLO on 03/23/23 0017 Pregabalin (Lyrica) 75 Mg Capsule, 75 MG PO DAILY, (Reported) Entered as Reported by: RIANA POWELL on 08/30/22 09 Tramadol HCl (Tramadol HCl) 50 Mg Tablet, 50 MG PO PRN, (Reported) Entered as Reported by: RIANA POWELL on 08/30/22955 Review of Systems Review of Systems Constitutional: see HPI EENTM: nose congestion Respiratory: cough, phlegm (yellow green sputum), short of breath, wheezing Cardiovascular: no symptoms reported Gastrointestinal: no symptoms reported Genitourinary: no symptoms reported Musculoskeletal: back pain Skin: no symptoms reported Psychiatric/Neurological: No Symptoms Reported All Other Systems Reviewed Negative Unless Noted: Yes Past Thupydx-Kmvglo-Zhfwwb Hx Patient Social History Tobacco Use?: Yes Substance use?: No Alcohol Use?: No Pt feels they are or have been: No Immunizations Up To Date Tetanus Booster (TDap): Unknown PED Vaccines UTD: No First/Initial COVID19 Vaccinat: YES Second COVID19 Vaccination Jermain: YES Third COVID19 Vaccination Date: YES Seasonal Allergies Seasonal Allergies: No Past Medical History Surgery/Hospitalization HX: HTN THYROID ca SPINAL STENOSIS 2 SECTIONS HYSTERECTOMY ARMINDA osteoarthritis thyroidectomy, c-sec, hyst, gall Surgeries: Yes Section, Gallbladder, Hysterectomy, Thyroidectomy Respiratory: Yes Chronic Bronchitis Cardiac: Yes Hypertension Neurological: No 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 Disorders: 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 Sexually Transmitted Disease: No HIV/AIDS: No Genitourinary: No Gastrointestinal: Yes Colitis, Gastroesophageal Reflux Musculoskeletal: Yes Degenerate Disk Disease, Chronic Back Pain Endocrine: Yes (OBESITY) Hypothyroidsim Loss of Vision: Denies Hearing Impairment: Denies Cancer: Yes Thyroid Psychosocial: No Integumentary: No Blood Disorders: No Family Medical History Alcoholism 19 FATHER G8 BROTHER Alzheimer's disease 19 MOTHER Cancer of mouth G8 BROTHER Cataracts 19 MOTHER Drug abuse G8 BROTHER FHx: lung cancer 19 FATHER Hypertension 19 FATHER 19 MOTHER G8 BROTHER G8 SISTER Respiratory disorder 19 FATHER Thyroid disease G8 SISTER No Pertinent Family Hx Physical Exam Vital Signs - First Documented 03/22/23 22:21 Temp 36.7 Pulse 78 Resp 18 B/P (MAP) 183/88 (119) Pulse Ox 96 O2 Delivery Room Air Capillary Refill : Less Than 3 Seconds Height: 5'3" Weight: 268lbs. 6.0oz. 121.156984vo; 43.00 BMI Method:Stated General Appearance: WD/WN, mild distress, obese Eyes: Bilateral Eye Normal Inspection, Bilateral Eye PERRL, Bilateral Eye EOMI HEENT: PERRL/EOMI Neck: normal inspection Respiratory: wheezing, other (conversational dyspnea; sat 94% on RA) Cardiovascular: regular rate, rhythm Gastrointestinal: other (obese) Extremities: normal range of motion, normal inspection, swelling (2+ edema) Neurologic/Psychiatric: alert, normal mood/affect, oriented x 3 Skin: normal color, warm/dry Progress/Results/Core Measures Suspected Sepsis SIRS Temperature: Pulse: 78 Respiratory Rate: 18 Blood Pressure 183 /88 Mean: 119 Results/Orders My Orders Orders - STUART CUELLO MD Ipratropium/Albuterol Inh Soln (Ipratrop (03/22/23 22:45) Svn Small Volume Nebulizer (03/22/23 22:44) Prednisone Tablet (Prednisone Tablet) (03/22/23 22:45) Chest Pa/Lat (2 View) (03/22/23 22:58) Doxycycline Hyclate Tablet (Doxycycline (03/23/23 00:11) Medications Given in ED Current Medications Medications Dose Ordered Sig/Nasim Route Start Time Stop Time Status Last Admin Dose Admin Albuterol/ Ipratropium 3 ml ONCE ONCE INH 03/22/23 22:45 03/22/23 22:46 DC 03/22/23 23:02 3 ML Prednisone 50 mg ONCE ONCE PO 03/22/23 22:45 03/22/23 22:46 DC 03/22/23 22:50 50 MG Vital Signs/I&O 03/22/23 03/22/23 03/23/23 22:21 23:02 00:14 Temp 36.7 36.5 Pulse 78 74 Resp 18 18 B/P (MAP) 183/88 (119) 165/98 Pulse Ox 96 95 97 O2 Delivery Room Air Room Air Room Air Capillary Refill : Less Than 3 Seconds Blood Pressure Mean: 119 Progress Note : Time: 00:11 Progress Note Patient seen and evaluated by me. Eval today includes physical exam and 2v CXR. Pertinent physical exam findings include WDWN obese female in mild distress with conversational dyspnea - expiratory wheezes throughout. Not hypoxic. VSS. ddx includes copd exacerbation, pneumonia, bronchitis Patient's CXR shows no concern for consolidating pneumonia. She is treated in the ED with a duoneb treatment, 50mg of prednisone and given 100mg doxycycline tablet. SHe has significant improvement in her wheezing after the breathing treatment. Reassurance provided. I am giving her medications (albuterol) for her home nebulizer, a rx for doxy for 10 days, prednisone 50mg for 4 more days. Patient is comfortable with this plan of care. REturn precautions provided in both verbal and written format. No concern at this time that the patient would require hospitalization. She appears adequately hydrated, is not febrile, does not appear, after treatment to hae any ongoing respiratory distress. I also encouraged her to quit smoking. All questions are sought and answered. Patient is improved at discharge. Diagnostic Imaging Diagonstic Imaging: Xray Plain Films/CT/US/NM/MRI: chest Comments CXR - independently reviewed and interpreted by me - no consolidative pneumonia Counseling-Symptomatic: 3-10 Minutes Follow-up with PCP to: Discuss Further Options Departure Impression Primary Impression: Bronchitis Disposition: 01 HOME, SELF-CARE Condition: Improved Departure-Patient Inst. Decision time for Depature: 00:08 Referrals: LUZ ARREDONDO MD (PCP/Family) Primary Care Physician Patient Instructions: Bronchitis, Adult ED, Quitting Smoking ED Add. Discharge Instructions: Use your nebulizer 3 times a day. You can use a puff on your inhaler in between if needed. Doxycycline 100mg twice a day for a total of 10 days. Please finish the entire course. Continue your mucinex to help thin out secretions/phlegm. If you develop worsening shortness of breath, high fever, worse pain - please return to the Emergency Department for re-evaluation. Please follow up with your primary care physician. You should consider quitting smoking. Scripts Prednisone (Prednisone) 50 Mg Tab 50 MG PO DAILY for 4 Days, #4 TAB Prov: STUART CUELLO MD 03/23/23 Doxycycline Hyclate (Doxycycline Hyclate) 100 Mg Tablet 100 MG PO BID, #19 TAB 0 Refills Prov: STUART CUELLO MD 03/23/23 Albuterol Sulfate (Albuterol Sulfate) 2.5 Mg/3 Ml (0.083 %) Vial.neb 2.5 MG INH Q4H PRN for WHEEZING, #50 EA 1 Refill Prov: STUART CUELLO MD 03/23/23 Copy Copies To 1: LUZ ARREDONDO MD, KATHRYN M MD Mar 22, 2023 22:48
[2023-03-23] MEDS ORDERED: ALBU2.5V4 INH (00:11)
[2023-03-23] MEDS ORDERED: DOXY100T2 PO (00:11)
[2023-03-23 00:14] VITALS: BP 165/98
[2023-03-23] MEDS ORDERED: PRD50T PO (00:17)
--- NOTE | 2023-03-23 07:03 | Diagnostic Imaging Report ---
INDICATION: Refractory cough, shortness of breath PA and lateral chest Heart and mediastinum are normal. Lungs are clear. There are no effusions or pneumothoraces. Pulmonary vascularity is normal. IMPRESSION: Negative chest Dictated by: Dictated on workstation # [id number]
== END 2023-03-23 00:17 | disposition home or self-care (01) ==
LOC: EDUNIT# 22:17 → ER 22:19
DX: J40 Bronchitis, not specified as acute or chronic (principal); E66.9 Obesity, unspecified; Z68.41 Body mass index [BMI] 40.0-44.9, adult
CPT/HCPCS: 71046; 94640

== ENCOUNTER 2023-05-17 18:18 | Emergency (ER) | payer MEDICAID ==
[~2023-05-17] VITALS: Ht 160 cm; Wt 127.0 kg
[~2023-05-17 18:18] MED LIST changes: +ALBU2.5V4 INH; +PRD50T PO
[2023-05-17 18:36] VITALS: BP 151/87
--- NOTE | 2023-05-17 18:43 | ED Back Pain ---
General Chief Complaint: Back Problems Stated Complaint: BACK PAIN Nursing Triage Note: PT AMBULATES TO RM 7 WITH C/O LOWER BACK PAIN AND BILAT HIP PAIN , WORSE IN THE LAST 5 DAYS. PT REPORTS TAKING TYLENOL, TRAMADOL AND MELOXICAM FOR PAIN TODAY WITHOUT RELIEF. Source of Information: Patient, Old Records History of Present Illness Date Seen by Provider: May 17, 2023 Time Seen by Provider: 18:35 Initial Comments PT ARRIVES VIA POV FROM HOME WITH A FEMALE C/O CHRONIC BACK AND BILATERAL HIP PAIN PT STATES SHE HAS OSTEOARTHRITIS, AND SHE TAKES TRAMADOL, LYRICA, MELOXICAM AND LIDOCAINE PATCHES DAILY--NO RELIEF THE LAST 5 DAYS PT STATES SHE HAS BEEN TOLD THAT SHE NEEDS HIP REPLACEMENT, BUT IS NOT A CANDIDATE DUE TO HER WEIGHT. PT STATES SHE HAS HAD MULTIPLE CT SCANS, XRAYS AND MRI'S SHE HAS HAD INJECTIONS IN HER BACK ABOUT 1 1/2 MONTHS AGO [address] AMIN SHE STATES SHE SEES DR. FERNANDEZ FOR HER HIP PAIN PT STATES SHE HAS SPINAL STENOSIS BUT IT IS NOT BAD ENOUGH TO NEED SURGERY SHE HAS NOT HAD ANY RECENT INJURY OR UNUSUAL ACTIVITY. STATES HER FEET ARE ALWAYS NUMB--PT IS NOT DIABETIC NO NEW PARESTHESIAS AND NO MOTOR DEFICITS NO LOSS OF BOWEL OR BLADDER CONTROL OR SADDLE ANESTHESIA PT HAD ROUTINE APPOINTMENT WITH DR. ARREDONDO LAST WEEK SHE HAS NOT ATTEMPTED TO CONTACT ANYONE THIS WEEK FOR THIS PROBLEM ( NOW IS SATURDAY NIGHT) SYMPTOMS NO DIFFERENT TONIGHT PT HAS ALSO HAS HISTORY OF HTN, THYROID CANCER SHE HAS HAD PRIOR HYSTERECTOMY Other Comments PCP: DR. ARREDONDO AT [facility]--[address] Allergies and Home Medications Allergies Coded Allergies: acetaminophen (Unverified Allergy, Mild, 01/12/14) anger oxycodone (Unverified Allergy, Mild, 01/12/14) anger Patient Home Medication List Home Medication List Reviewed: Yes Acetaminophen (Acetaminophen) 325 Mg Tablet, 325 MG PO Q4H, (Reported) Entered as Reported by: RIANA POWELL on 08/30/22 0956 Albuterol (Proventil) 17 Gm Inh, 1-2 PUFF IH Q4H PRN for SHORTNESS OF BREATH, (Reported) Entered as Reported by: DOUGLAS TIRADO on 01/12/14 2204 Albuterol Sulfate (Albuterol Sulfate) 2.5 Mg/3 Ml (0.083 %) Vial.neb, 2.5 MG INH Q4H PRN for WHEEZING Prescribed by: STUART CUELLO on 03/23/2310 Chlorthalidone (Chlorthalidone) 25 Mg Tablet, 25 MG PO DAILY, (Reported) Entered as Reported by: RIANA POWELL on 08/30/22955 Clonidine HCl (Catapres) 0.1 Mg Tablet, 0.1 MG PO BID, (Reported) Entered as Reported by: DOUGLAS TIRADO on 01/12/142203 Cyclobenzaprine HCl (Cyclobenzaprine HCl) 10 Mg Tablet, 10 MG PO TID Prescribed by: Suyapa Roper on 01/05/23 130 Doxycycline Hyclate (Doxycycline Hyclate) 100 Mg Tablet, 100 MG PO BID Prescribed by: STUART CUELLO on 03/23/2310 Ergocalciferol (Vitamin D2) (Vitamin D2) 50 Mcg (2000 Unit) Capsule, 50 MCG PO DAILY, (Reported) Entered as Reported by: RIANA POWELL on 08/30/22955 Famotidine (Acid Project Manager [employer] (FAMOTIDINE)) 20 Mg Tablet, 20 MG PO DAILY, (Reported) Entered as Reported by: RIANA POWELL on 08/30/22955 Fexofenadine HCl (Fexofenadine HCl) 180 Mg Tablet, 180 MG PO DAILY, (Reported) Entered as Reported by: RIANA POWELL on 08/30/22955 Levothyroxine Sodium (Synthroid) 150 Mcg Tablet, 150 MCG PO DAILY, (Reported) Entered as Reported by: DOUGLAS TIRADO on 01/12/142203 Lidocaine (Salonpas) 4 % Adh..patch, 1 EACH TP Q12H Prescribed by: Suyapa Roper on 01/05/23 130 Lisinopril (Lisinopril) 40 Mg Tablet, 40 MG PO DAILY, (Reported) Entered as Reported by: RIANA POWELL on 08/30/22955 Meloxicam (Meloxicam) 15 Mg Tablet, 15 MG PO DAILY, (Reported) Entered as Reported by: RIANA PWOELL on 08/30/22955 Methylprednisolone (Methylprednisolone Dose Pack) 4 Mg Tab.ds.pk, 4 MG PO UD Prescribed by: Suyapa Roper on 01/05/23 1306 Prednisone (Prednisone) 50 Mg Tab, 50 MG PO DAILY Prescribed by: STUART CUELLO on 03/23/23 0017 Pregabalin (Lyrica) 75 Mg Capsule, 75 MG PO DAILY, (Reported) Entered as Reported by: RIANA POWELL on 08/30/22 09 Tramadol HCl (Tramadol HCl) 50 Mg Tablet, 50 MG PO PRN, (Reported) Entered as Reported by: RIANA POWELL on 08/30/22955 Review of Systems Constitutional: no symptoms reported Respiratory: no symptoms reported Cardiovascular: no symptoms reported Gastrointestinal: no symptoms reported Genitourinary: no symptoms reported Musculoskeletal: see HPI Skin: no symptoms reported Psychiatric/Neurological: See HPI Past Btnimja-Olmszv-Ryqpoj Hx Patient Social History Tobacco Use?: No Use of E-Cig and/or Vaping dev: No Substance use?: No Alcohol Use?: No Immunizations Up To Date Tetanus Booster (TDap): Unknown PED Vaccines UTD: No First/Initial COVID19 Vaccinat: YES Second COVID19 Vaccination Jermain: YES Third COVID19 Vaccination Date: YES Seasonal Allergies Seasonal Allergies: No Past Medical History Surgery/Hospitalization HX: HTN THYROID ca SPINAL STENOSIS CARDIAC CATH 2013--CORONARY SPASM WITH 40% STENOSIS, NO INTERVENTION 2 SECTIONS HYSTERECTOMY ARMINDA osteoarthritis thyroidectomy, c-sec, hyst, gall Surgeries: Yes Cardiac, Section, Gallbladder, Hysterectomy, Thyroidectomy Respiratory: Yes Chronic Bronchitis Cardiac: Yes Hypertension Neurological: Yes (NEUROPATHY IN FEET) Neuropathy 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 Sexually Transmitted Disease: No HIV/AIDS: No Genitourinary: No Gastrointestinal: Yes Colitis, Gastroesophageal Reflux Musculoskeletal: Yes (CHRONIC HIP PAIN) Degenerate Disk Disease, Arthritis, Chronic Back Pain Endocrine: Yes (OBESITY) Hypothyroidsim HEENT: No Loss of Vision: Denies Hearing Impairment: Denies Cancer: Yes Thyroid Did You Recieve Any Treatments: Yes What Type of Treatment Did You: Surgical Intervention Psychosocial: No Integumentary: No Blood Disorders: No Family Medical History Alcoholism 19 FATHER G8 BROTHER Alzheimer's disease 19 MOTHER Cancer of mouth G8 BROTHER Cataracts 19 MOTHER Drug abuse G8 BROTHER FHx: lung cancer 19 FATHER Hypertension 19 FATHER 19 MOTHER G8 BROTHER G8 SISTER Respiratory disorder 19 FATHER Thyroid disease G8 SISTER No Pertinent Family Hx Physical Exam Vital Signs Vital Signs - First Documented 05/17/23 18:36 Temp 36.8 Pulse 88 Resp 20 B/P (MAP) 151/87 (108) Pulse Ox 97 O2 Delivery Room Air Capillary Refill : Less Than 3 Seconds Height, Weight, BMI Height: 5'3" Weight: 268lbs. 6.0oz. 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 Norm as Tested Skin: Normal Color, Warm/Dry Progress/Results/Core Measures Results/Orders My Orders Orders - STEPHAN ROBERT DO Ketorolac Injection (Ketorolac Injection (05/17/23 18:45) Orphenadrine Inj (Ed Only) (Orphenadrine (05/17/23 18:45) Dexamethasone Injection (Dexamethasone (05/17/23 18:45) Medications Given in ED Current Medications Medications Dose Ordered Sig/Nasim Route Start Time Stop Time Status Last Admin Dose Admin Dexamethasone Sodium Phosphate 10 mg ONCE ONCE IM 05/17/23 18:45 05/17/23 18:46 DC 05/17/23 19:06 10 MG Ketorolac Tromethamine 60 mg ONCE ONCE IM 05/17/23 18:45 05/17/23 18:46 DC 05/17/23 19:07 60 MG Orphenadrine Citrate 60 mg ONCE ONCE IM 05/17/23 18:45 05/17/23 18:46 DC 05/17/23 19:06 60 MG Vital Signs/I&O 05/17/23 18:36 Temp 36.8 Pulse 88 Resp 20 B/P (MAP) 151/87 (108) Pulse Ox 97 O2 Delivery Room Air Blood Pressure Mean: 108 Progress Progress Note : Progress Note VITALS ON ARRIVAL: TEMP 36.8=98.2, HR 88, RR 20, BP 151/87, O2 SAT 97% ON ROOM AIR GIVEN: -TORADOL -NORFLEX -DECADRON UNEVENTFUL ER STAY DISCUSSED ANTICIPATED COURSE, SYMPTOMATIC TREATMENT, MEDICATION ,NEED FOR FOLLOW UP AND RETURN PRECAUTIONS REVIEWED PRIOR RECORDS Departure Impression Primary Impression: Chronic back pain Additional Impressions: Chronic hip pain, bilateral Obesity Disposition: HOME, SELF-CARE Condition: Stable Departure-Patient Inst. Decision time for Depature: 18:44 Referrals: LUZ ARREDONDO MD (PCP/Family) Primary Care Physician Patient Instructions: MANAGING YOUR CHRONIC PAIN Add. Discharge Instructions: CONTINUE YOUR REGULAR MEDICATIONS PRESCRIBED FOLLOW UP WITH YOUR REGULAR DR AND ORTHOPEDICS/PAIN MANAGEMENT FOR FURTHER CARE--CALL ON SATURDAY TO SCHEDULE AN APPOINTMENT All discharge instructions reviewed with patient and/or family. Voiced understanding. STEPHAN ROBERT DO May 17, 2023 18:43
[2023-05-17] MEDS ORDERED: ORPHENADRINE 60 MG/2 ML AMP (ED ONLY) IM ONE (18:45)
[2023-05-17] MEDS ORDERED: dexAMETHasone INJ 10 MG/ML 1 ML VIAL IM ONE (18:45)
[2023-05-17] MEDS ORDERED: KETOROLAC INJ 60 MG/2 ML VIAL IM ONE (18:45)
== END 2023-05-17 19:12 | disposition home or self-care (01) ==
LOC: EDUNIT# 18:18 → ER 18:20
DX: M54.50 Low back pain, unspecified (principal); M25.551 Pain in right hip; M25.552 Pain in left hip; G89.29 Other chronic pain; E66.9 Obesity, unspecified; Z68.42 Body mass index [BMI] 45.0-49.9, adult; Z79.891 Long term (current) use of opiate analgesic
CPT/HCPCS: 99284